=== PATIENT | male | born 1965 | race Caucasian/White ===

== ENCOUNTER 2016-11-14 08:10 | Inpatient (IN) | payer OTHER ==
[~2016-11-14] VITALS: Ht 182.9 cm; Wt 70.5 kg
[~2016-11-14 08:10] MED LIST: BACT800T5 PO; CEPH500C3 PO; LATU80TA PO; LITH1TAB3 PO; LITH300C2 PO; TRAM50 PO
[2016-11-14 08:14] VITALS: BP 130/62; PULSE 80; RESP 18; TEMP 98.8; O2SAT 99
[2016-11-14] MEDS ORDERED: LITH600C PO (08:17)
[2016-11-14] MEDS ORDERED: GEOD80CA PO (08:17)
[2016-11-14] MEDS ORDERED: ZANT150T2 PO (08:17)
[2016-11-14] MEDS ORDERED: DOCU100C PO (08:17)
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
[2016-11-14 08:54] LABS: AUTOMATED NEUTROPHIL # 4.7 TH/MM3 (1.8-7.7); BASOPHIL # 0.1 TH/MM3 (0-0.2); BASOPHIL % 0.8 % (0.0-2.0); EOSINOPHIL # 0.2 TH/MM3 (0-0.4); EOSINOPHIL % 2.3 % (0.0-4.0); HEMATOCRIT 45.5 % (39.0-51.0); HEMO FLAGS DIFF FINAL; LYMPH % 28.3 % (9.0-44.0); LYMPHOCYTE # 2.1 TH/MM3 (1.0-4.8); MEAN CELL VOLUME 77.2 FL (80.0-100.0); MEAN CORPUSCULAR HEMOGLOBIN 24.9 PG (27.0-34.0); MEAN CORPUSCULAR HGB CONC 32.3 % (32.0-36.0); MONO % 6.6 % (0.0-8.0); PLATELET COUNT 297 TH/MM3 (150-450); RED CELL DISTRIBUTION WIDTH 19.8 % (11.6-17.2); WHITE BLOOD COUNT 7.5 TH/MM3 (4.0-11.0)
[2016-11-14 09:05] LABS: ALT (GPT) 32 U/L (12-78); ANION GAP 7 MEQ/L (5-15); AST (GOT) 35 U/L (15-37); BICARBONATE 24.8 MEQ/L (21.0-32.0); BLOOD UREA NITROGEN 18 MG/DL (7-18); CHLORIDE 107 MEQ/L (98-107); GLOMERULAR FILTRATION RATE 119 ML/MIN (>89); POTASSIUM 3.7 MEQ/L (3.5-5.1); SODIUM (NA) 139 MEQ/L (136-145)
[2016-11-14 09:08] LABS: ALKALINE PHOSPHATASE 118 U/L (45-117); TOTAL BILIRUBIN ADULT 0.2 MG/DL (0.2-1.0)
[2016-11-14 10:00] VITALS: BP 132/84; PULSE 76; RESP 20; O2SAT 98
[2016-11-14 12:00] VITALS: BP 130/62; PULSE 80; RESP 14; O2SAT 99
[2016-11-14] MEDS ORDERED: LORazepam 1 MG TAB PO ONE (14:15)
[2016-11-14 15:49] VITALS: BP 114/80; PULSE 85; RESP 16; O2SAT 100
[2016-11-14] MEDS ORDERED: IBUPROFEN 800 MG TAB PO ONE (16:45)
[2016-11-14] MEDS: LITHIUM CARBONATE 300 MG CAP PO SCH (20:30)
[2016-11-14] MEDS: ZIPRASIDONE HCL 80 MG CAP PO SCH (20:30)
[2016-11-14 23:13] VITALS: BP 104/56; PULSE 76; RESP 18; TEMP 98.9; O2SAT 97
[2016-11-15 02:17] VITALS: BP 112/59; PULSE 72; RESP 18; TEMP 98; O2SAT 95
[2016-11-15 05:07] VITALS: BP 101/78; PULSE 91; RESP 18; TEMP 98.4; O2SAT 98
[2016-11-15] MEDS ORDERED: IBUPROFEN 800 MG TAB PO ONE (05:30)
[2016-11-15] MEDS: LITHIUM CARBONATE 300 MG CAP PO SCH ×4 (08:26→20:51)
[2016-11-15] MEDS: ZIPRASIDONE HCL 80 MG CAP PO SCH ×2 (08:52→20:51)
[2016-11-15] MEDS ORDERED: MAGNESIUM HYDROXIDE SUSP 30 ML CUP PO PRN (09:30)
[2016-11-15] MEDS ORDERED: diphenhydrAMINE HCL 50 MG CAP PO PRN (09:30)
[2016-11-15] MEDS ORDERED: ALUMINUM/MAGNESIUM/SIMETH 30 ML CUP PO PRN (09:30)
[2016-11-15] MEDS ORDERED: LORazepam 0.5 MG TAB PO PRN (09:30)
[2016-11-15] MEDS: clonazePAM 1 MG TAB PO SCH ×2 (09:45→20:51)
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
[2016-11-15 11:33] VITALS: BP 114/64; PULSE 80; RESP 18; TEMP 97.6; O2SAT 99
[2016-11-15 12:51] LABS: FREE T4 1.15 NG/DL (0.76-1.46)
[2016-11-15 17:26] VITALS: BP 112/80; PULSE 87; RESP 17; TEMP 98.3; O2SAT 98
[2016-11-15] MEDS: DOCUSATE SODIUM 100 MG CAP PO SCH (20:50)
[2016-11-15] MEDS: FAMOTIDINE 20 MG TAB PO SCH (20:51)
[2016-11-15] MEDS ORDERED: ZIPRASIDONE HCL 80 MG CAP PO SCH (21:00)
[2016-11-16 06:01] VITALS: BP 99/63; PULSE 99; RESP 18; TEMP 98; O2SAT 96
[2016-11-16] MEDS: LITHIUM CARBONATE 300 MG CAP PO SCH (08:53)
[2016-11-16] MEDS: ZIPRASIDONE HCL 80 MG CAP PO SCH (09:00)
[2016-11-16] MEDS: clonazePAM 1 MG TAB PO SCH (09:00)
[2016-11-16] MEDS: DOCUSATE SODIUM 100 MG CAP PO SCH ×3 (09:00→21:44)
[2016-11-16] MEDS: FAMOTIDINE 20 MG TAB PO SCH ×2 (09:00→21:44)
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
[2016-11-16 13:59] LABS: AUTOMATED NEUTROPHIL # 5.3 TH/MM3 (1.8-7.7); BASOPHIL % 0.5 % (0.0-2.0); EOSINOPHIL # 0.2 TH/MM3 (0-0.4); EOSINOPHIL % 3.2 % (0.0-4.0); HEMATOCRIT 37.1 % (39.0-51.0); HEMO FLAGS DIFF FINAL; LYMPH % 18.6 % (9.0-44.0); LYMPHOCYTE # 1.4 TH/MM3 (1.0-4.8); MEAN CELL VOLUME 77.3 FL (80.0-100.0); MEAN CORPUSCULAR HEMOGLOBIN 24.1 PG (27.0-34.0); MEAN CORPUSCULAR HGB CONC 31.2 % (32.0-36.0); MONO % 6.8 % (0.0-8.0); NEUT % 70.9 % (16.0-70.0); PLATELET COUNT 293 TH/MM3 (150-450); RED CELL DISTRIBUTION WIDTH 19.6 % (11.6-17.2); WHITE BLOOD COUNT 7.5 TH/MM3 (4.0-11.0)
[2016-11-16 14:24] LABS: ANION GAP 8 MEQ/L (5-15); AST (GOT) 19 U/L (15-37); BICARBONATE 24.3 MEQ/L (21.0-32.0); BLOOD UREA NITROGEN 16 MG/DL (7-18); CHLORIDE 111 MEQ/L (98-107); GLOMERULAR FILTRATION RATE 87 ML/MIN (>89); POTASSIUM 4.5 MEQ/L (3.5-5.1); SODIUM (NA) 143 MEQ/L (136-145)
[2016-11-16 14:52] LABS: ALKALINE PHOSPHATASE 104 U/L (45-117); ALT (GPT) 20 U/L (12-78); HDL CHOLESTEROL 45.3 MG/DL (40.0-60.0); LDL CHOLESTEROL 45 MG/DL (0-99); TOTAL BILIRUBIN ADULT LESS THAN 0.1 MG/DL (0.2-1.0)
[2016-11-16 15:56] LABS: HEMOGLOBIN A1a 1.4 %; HEMOGLOBIN A1b 0.8 %; HEMOGLOBIN Ao 84.2 %; HEMOGLOBIN F 1.4 %; HEMOGLOBIN LA1C 2.1 %; HEMOGLOBIN P3 3.8 %
[2016-11-17] MEDS: ACETAMINOPHEN 325 MG TAB PO PRN ×2 (05:06→20:59)
[2016-11-17 06:13] VITALS: BP 125/80; PULSE 81; RESP 16; TEMP 98.3; O2SAT 96
[2016-11-17] MEDS: FAMOTIDINE 20 MG TAB PO SCH ×2 (09:00→20:59)
[2016-11-17] MEDS: DOCUSATE SODIUM 100 MG CAP PO SCH ×2 (09:00→20:59)
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
[2016-11-17 15:26] LABS: TRANSFERRIN IRON PROFILE 249 MG/DL (200-360)
[2016-11-17 15:29] LABS: FERRITIN 12 NG/ML (26-388)
[2016-11-17 17:31] VITALS: BP 119/72; PULSE 84; RESP 18; TEMP 97.1; O2SAT 97
--- NOTE | 2016-11-17 21:50 | EKG ---
Date Performed: 11/16/2016 Time Performed: 14:29:24 PTAGE: 51 years EKG: Sinus rhythm NORMAL ECG PREVIOUS TRACING : 12/10/2014 23.20 Compared to the previous tracing rate slower DOCTOR: James Garsia Interpretating Date/Time 11/17/2016 21:50:00
[2016-11-18] MEDS: ACETAMINOPHEN 325 MG TAB PO PRN (01:52)
[2016-11-18 06:04] VITALS: BP 146/91; PULSE 84; RESP 17; TEMP 97.8; O2SAT 98
[2016-11-18] MEDS: CYANOCOBALAMIN 1,000 MCG TAB PO SCH ×2 (09:00→09:34)
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
[2016-11-18] MEDS: LITHIUM CARBONATE 300 MG CAP PO SCH ×2 (09:30→21:00)
[2016-11-18] MEDS: FAMOTIDINE 20 MG TAB PO SCH (09:34)
[2016-11-18] MEDS: DOCUSATE SODIUM 100 MG CAP PO SCH (09:34)
[2016-11-18] MEDS: FERROUS SULFATE 325 MG (65 MG ELEMENTAL IRON) TAB PO SCH ×2 (12:43→17:00)
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
[2016-11-18] MEDS ORDERED: IBUPROFEN 600 MG TAB PO PRN (16:45)
[2016-11-18] MEDS ORDERED: traMADol HCL 50 MG TAB PO PRN (16:45)
[2016-11-18] MEDS: PANTOPRAZOLE SOD 40 MG DELAYED RELEASE TAB PO SCH (17:00)
[2016-11-18 18:23] VITALS: BP 114/72; PULSE 87; RESP 18; TEMP 98.2; O2SAT 97
[2016-11-18] MEDS: DOCUSATE SODIUM 50 MG/SENNA 8.6 MG TAB PO SCH (21:00)
[2016-11-19] MEDS: PANTOPRAZOLE SOD 40 MG DELAYED RELEASE TAB PO SCH ×2 (08:03→08:28)
[2016-11-19] MEDS: CYANOCOBALAMIN 1,000 MCG TAB PO SCH (08:03)
[2016-11-19] MEDS: DOCUSATE SODIUM 50 MG/SENNA 8.6 MG TAB PO SCH ×4 (08:03→21:23)
[2016-11-19] MEDS: LITHIUM CARBONATE 300 MG CAP PO SCH ×3 (08:03→21:23)
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
[2016-11-19] MEDS: FERROUS SULFATE 325 MG (65 MG ELEMENTAL IRON) TAB PO SCH ×2 (12:00→17:00)
[2016-11-19 16:15] VITALS: BP 129/72; PULSE 129; RESP 18; TEMP 95.4; O2SAT 98
[2016-11-19] MEDS: ACETAMINOPHEN 325 MG TAB PO PRN ×2 (18:11→21:29)
[2016-11-20 05:39] VITALS: BP 114/73; PULSE 80; RESP 16; TEMP 98.1; O2SAT 97
[2016-11-20] MEDS: CYANOCOBALAMIN 1,000 MCG TAB PO SCH (08:50)
[2016-11-20] MEDS: LITHIUM CARBONATE 300 MG CAP PO SCH ×2 (08:50→20:45)
[2016-11-20] MEDS: DOCUSATE SODIUM 50 MG/SENNA 8.6 MG TAB PO SCH ×2 (08:51→20:45)
[2016-11-20] MEDS: PANTOPRAZOLE SOD 40 MG DELAYED RELEASE TAB PO SCH (08:51)
[2016-11-20] MEDS: FERROUS SULFATE 325 MG (65 MG ELEMENTAL IRON) TAB PO SCH ×2 (12:00→16:41)
[2016-11-20 17:53] VITALS: BP 125/86; PULSE 110; RESP 18; TEMP 98.3; O2SAT 97
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
[2016-11-21 05:32] VITALS: BP 118/78; PULSE 104; RESP 20; TEMP 97.3; O2SAT 96
[2016-11-21] MEDS: DOCUSATE SODIUM 50 MG/SENNA 8.6 MG TAB PO SCH ×2 (09:00→20:42)
[2016-11-21] MEDS: PANTOPRAZOLE SOD 40 MG DELAYED RELEASE TAB PO SCH (09:00)
[2016-11-21] MEDS: LITHIUM CARBONATE 300 MG CAP PO SCH ×2 (10:23→20:42)
[2016-11-21] MEDS: FERROUS SULFATE 325 MG (65 MG ELEMENTAL IRON) TAB PO SCH ×2 (13:28→17:03)
[2016-11-21] MEDS: CYANOCOBALAMIN 1,000 MCG TAB PO SCH (13:28)
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
[2016-11-21 17:08] VITALS: BP 118/75; PULSE 89; RESP 18; TEMP 98.9; O2SAT 98
--- NOTE | 2016-11-21 18:35 | HHI.PYPN ---
Subjective Remarks Patient was seen and case discussed with nursing. Patient remains loud irritable and threatening. This is a possible act to extend his stay. Per nursing he may have a secondary gain to stay here not become homeless. Patient cuts the interview short and is not cooperative. Compliant with medications Objective Alert: Yes [place]: Person, Place, Date, Situation Mood: Agitated, Angry Affect: Labile Memory Intact: Comment (Not formally assessed) Hallucinations: Other (would not answer) Delusions: No Delusion Type: Other (would not answer) Suicidal: Ideation (would not answer) Homicidal: Ideation (not answer) Insight/Judgment Poor Labs Date/Time Source Procedure Growth Status 11/18/16 19:14 Stool Stool Stool Occult Blood (ALYSA) - Final HEMOCCULT NEGATIVE Complete Vitals/IOs Vital Signs Date Time Temp Pulse Resp B/P (MAP) Pulse Ox O2 Delivery O2 Flow Rate FiO2 11/21/16 17:08 98.9 89 18 118/75 (89) 98 Assessment & Plan Problem List: (1) Adjustment disorder with mixed disturbance of emotions and conduct ICD Codes: F43.25 - Adjustment disorder with mixed disturbance of emotions and conduct (2) Antisocial personality traits (3) Cocaine abuse ICD Codes: F14.10 - Cocaine abuse, uncomplicated (4) History of schizoaffective disorder ICD Codes: Z86.59 - Personal history of other mental and behavioral disorders Assessment & Plan Continue current treatment plan Justification for Cont. Inpt. Patient will decompensate in a less restrictive setting Request HC Surrog/Guard Advoc?: No Luis Manuel Castellano DO Nov 21, 2016 18:35
[2016-11-21] MEDS: FAMOTIDINE 20 MG TAB PO SCH (20:42)
[2016-11-22 06:04] VITALS: BP 109/64; PULSE 77; RESP 18; TEMP 99; O2SAT 96
[2016-11-22] MEDS ORDERED: LITH300C2 PO (08:59)
[2016-11-22] MEDS ORDERED: FERR325T20 PO (08:59)
[2016-11-22] MEDS ORDERED: VITA10002 PO (08:59)
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
[2016-11-22] MEDS: DOCUSATE SODIUM 50 MG/SENNA 8.6 MG TAB PO SCH ×2 (09:00→09:12)
[2016-11-22] MEDS: CYANOCOBALAMIN 1,000 MCG TAB PO SCH (09:12)
[2016-11-22] MEDS: FAMOTIDINE 20 MG TAB PO SCH (09:12)
[2016-11-22] MEDS: LITHIUM CARBONATE 300 MG CAP PO SCH (09:12)
[2016-11-22] MEDS: FERROUS SULFATE 325 MG (65 MG ELEMENTAL IRON) TAB PO SCH (12:00)
== END 2016-11-22 13:00 | disposition home or self-care (01) | DRG 883 ==
LOC: NEPE 08:10 → NEDA 11-15 09:29 → H270 11-15 10:35
PROVIDERS: ADMIT Psychiatry & Neurology Psychiatry; ATTEND Psychiatry & Neurology Psychiatry
DX: F60.2 Antisocial personality disorder (principal); R45.850 Homicidal ideations; F14.10 Cocaine abuse, uncomplicated; F17.210 Nicotine dependence, cigarettes, uncomplicated; D50.9 Iron deficiency anemia, unspecified; F43.25 Adjustment disorder with mixed disturbance of emotions and conduct; Z59.0 Homelessness; Z86.59 Personal history of other mental and behavioral disorders
CPT/HCPCS: 80053; 80061; 80178; 80307; 82272; 82306; 82607; 82728; 83036; 83540; 83550; 84439; 84443; 85025; 93005; Q0163

== ENCOUNTER 2017-03-06 09:30 | Inpatient (IN) | payer OTHER ==
[2017-03-06 09:58] LABS: RBC COMMENT 1 1
[2017-03-06] MEDS ORDERED: SODIUM CHLORIDE 0.9% FLUSH 10 ML FLUSH IV FLUSH ×4 (10:00→21:00)
[2017-03-06 10:18] LABS: BLOOD GAS BASE EXCESS -4.4 mmol/L (-2-2); BLOOD GAS CARBOXYHEMOGLOBIN 1.3 % (0-4); BLOOD GAS HCO3 19 mmol/L (22-26); BLOOD GAS METHEMOGLOBIN 0.5 % (0-2); BLOOD GAS O2 HGB SATURATION 98 % (90-100); BLOOD GAS OXYGEN CONTENT 13.8 Vol % (12.0-20.0); BLOOD GAS PCO2 27 mmHg (38-42); BLOOD GAS PO2 158 mmHG (61-120); BLOOD GAS TOTAL HGB 9.8 G/DL (12.0-16.0); CRITICAL VALUE NO; TEMP CORR TO 98.6
[2017-03-06 10:19] LABS: DRAW SITE RT RADIAL; FIO2 40 %; LITER FLOW 5 L/M; NUMBER OF ARTERIAL PUNCTURES 1; OXYGEN DEVICE NASAL CANNULA; STAT YES; ULNAR PULSE PRESENT
[2017-03-06] MEDS: SODIUM CHLOR 0.9% 1000 ML INJ 1,000 ML IV ×4 (10:23→20:00)
[2017-03-06] MEDS: PIPERACIL-TAZO 4.5 GM PREMIX 100 ML IV ×3 (10:24→22:25)
[2017-03-06] MEDS: SODIUM CHLOR 0.9% 250 ML INJ 250 ML IV ×2 (10:24→12:45)
[2017-03-06 10:42] LABS: BACTERIA, URINE RARE /hpf; BILIRUBIN, URINE NEG (NEG); BLOOD, URINE SMALL (NEG); GLUCOSE,URINE NEG (NEG); KETONE, URINE NEG (NEG); MUCUS URINE FEW /lpf (OCC); NITRITE,URINE NEG (NEG); URINE COLOR YELLOW (YELLW/STRAW); URINE LEUKOCYTE ESTERASE NEG (NEG)
[2017-03-06 10:44] LABS: COMMENT (UR) CATH-CULTURE IND; CULTURE IF INDICATED CATH CULTURE IND
[2017-03-06 10:48] LABS: AMMONIA 30 MCMOL/L (11-32)
[2017-03-06 10:49] LABS: AMPHETAMINE, URINE NEG (NEG); BARBITURATES, URINE NEG (NEG); BENZODIAZEPINE,URINE NEG (NEG); CANNABINOIDS, URINE NEG (NEG); COCAINE, URINE NEG (NEG)
[2017-03-06 10:52] LABS: SALICYLATES LESS THAN 1.7 MG/DL (2.8-20.0)
[2017-03-06] MEDS: VANCOMYCIN INJ 1,000 MG in SODIUM CHLOR 0.9% 250 ML INJ 250 ML IV (10:58)
[2017-03-06 11:09] LABS: CREATINE KINASE 961 U/L (39-308); TOTAL BILIRUBIN ADULT 0.1 MG/DL (0.2-1.0); TROPONIN I LESS THAN 0.02 NG/ML (0.02-0.05)
[2017-03-06 11:22] LABS: CKMB 29.3 NG/ML (0.5-3.6)
[2017-03-06 11:39] LABS: AUTOMATED NEUTROPHIL # 18.7 TH/MM3 (1.8-7.7); BASOPHIL % 0.1 % (0.0-2.0); HEMATOCRIT 27.7 % (39.0-51.0); HEMO FLAGS DIFF FINAL; HEMOGLOBIN 8.9 GM/DL (13.0-17.0); LYMPH % 2.9 % (9.0-44.0); LYMPHOCYTE # 0.6 TH/MM3 (1.0-4.8); MEAN CELL VOLUME 82.5 FL (80.0-100.0); MEAN CORPUSCULAR HEMOGLOBIN 26.6 PG (27.0-34.0); MEAN CORPUSCULAR HGB CONC 32.3 % (32.0-36.0); MEAN PLATELET VOLUME 7.4 FL (7.0-11.0); MONO % 6.8 % (0.0-8.0); MONOCYTE # 1.4 TH/MM3 (0-0.9); NEUT % 90.2 % (16.0-70.0); PLATELET COUNT 444 TH/MM3 (150-450); RED BLOOD COUNT 3.36 MIL/MM3 (4.50-5.90); RED CELL DISTRIBUTION WIDTH 15.5 % (11.6-17.2); WHITE BLOOD COUNT 20.8 TH/MM3 (4.0-11.0)
[2017-03-06 11:48] LABS: INTERNATIONAL NORMALIZED RATIO 2.2 RATIO; PROTHROMBIN TIME - PATIENT 22.6 SEC (9.8-11.6)
[2017-03-06 11:52] LABS: APTT (PATIENT) 30.9 SEC (24.3-30.1)
[2017-03-06] MEDS: NORMOSOL R IV (12:00)
[2017-03-06] MEDS: STERILE WATER FOR INJECTION 20 ML VIAL IV (12:00)
[2017-03-06] MEDS: PHENYLEPH/NS 1000 MCG/10 ML SYR IV (12:00)
[2017-03-06] MEDS: PHENYLEPHRINE HCL 10 MG/ML VIAL IV (12:00)
[2017-03-06] MEDS: VECURONIUM BROMIDE 20 MG VIAL IV (12:00)
[2017-03-06] MEDS: ePHEDrine/NS 25 MG/5 ML SYRINGE IV (12:00)
[2017-03-06] MEDS: ceFAZolin INJ 1,000 MG VIAL IV (12:00)
[2017-03-06] MEDS: ROCURONIUM INJ 50 MG/5 ML SYRINGE IV PUSH (12:00)
[2017-03-06] MEDS: LEVOTHYROXINE SODIUM 100 MCG VIAL IV PUSH (12:37)
[2017-03-06 12:44] LABS: ACETAMINOPHEN 15.3 MCG/ML (10.0-30.0); ALBUMIN 0.8 GM/DL (3.4-5.0); ALT (GPT) 22 U/L (12-78); ANION GAP 10 MEQ/L (5-15); AST (GOT) 36 U/L (15-37); BICARBONATE 16.3 MEQ/L (21.0-32.0); BLOOD UREA NITROGEN 25 MG/DL (7-18); CHLORIDE 121 MEQ/L (98-107); CREATININE 0.68 MG/DL (0.60-1.30); GLOMERULAR FILTRATION RATE 123 ML/MIN (>89); GLUCOSE,RANDOM 79 MG/DL (74-106); SODIUM (NA) 147 MEQ/L (136-145)
[2017-03-06] MEDS ORDERED: ONDANSETRON HCL 4 MG/2 ML VIAL IV PUSH (12:45)
[2017-03-06] MEDS: MISCELLANEOUS NURSING INFORMATION XX (12:45)
[2017-03-06] MEDS ORDERED: CHLORHEXIDINE GLUCONATE 2 % 1 PACK (2 CLOTHS) TOP (12:45)
[2017-03-06 12:46] LABS: LACTIC ACID SEPSIS PROTOCOL 2.8 mmol/L (0.4-2.0)
[2017-03-06 12:52] LABS: CALCIUM LESS THAN 5.0 MG/DL (8.5-10.1)
[2017-03-06 12:57] LABS: TOTAL PROTEIN 2.7 GM/DL (6.4-8.2)
[2017-03-06 12:59] LABS: ALKALINE PHOSPHATASE 44 U/L (45-117)
[2017-03-06] MEDS: ETOMIDATE 20 MG/10 ML VIAL IV PUSH (13:00)
[2017-03-06] MEDS: ROCURONIUM INJ 100 MG/10 ML VIAL IV (13:00)
[2017-03-06] MEDS ORDERED: TERBUTALINE INJ 1 MG/ML AMP SQ (13:00)
[2017-03-06] MEDS ORDERED: SODIUM CHLOR 0.9% 1000 ML INJ 1,000 ML IV (13:00)
[2017-03-06 13:01] LABS: ALCOHOL LESS THAN 3 MG/DL (0-5)
[2017-03-06 13:08] LABS: POTASSIUM 2.7 MEQ/L (3.5-5.1)
[2017-03-06] MEDS: ROCURONIUM INJ 50 MG/5 ML VIAL ×2 (13:11→14:13)
[2017-03-06 13:30] LABS: LACTIC ACID GHOST NOT REPORTABLE
[2017-03-06] MEDS: MIDAZOLAM HCL 5 MG/5 ML VIAL IV PUSH (14:00)
[2017-03-06] MEDS ORDERED: SODIUM BICARBONATE 8.4% INJ 150 MEQ in WATER STERILE FOR INJ 850 ML IV (14:00)
[2017-03-06] MEDS: POTASSIUM CHLOR 40 MEQ PREMIX 100 ML IV (14:00)
[2017-03-06] MEDS: CALCIUM CHLORIDE 10% SOLN 1 GRAM/10 ML SYR IV PUSH (14:00)
[2017-03-06] MEDS: MIDAZOLAM HCL 5 MG/ML VIAL (1 ML) ×2 (14:13)
[2017-03-06 14:33] LABS: FFP COMMENT 1 1
[2017-03-06] MEDS: BUPIVACAINE/EPINEPHRINE 0.25% PF 30 ML VIAL (15:15)
[2017-03-06 16:12] LABS: APTT (PATIENT) 26.3 SEC (24.3-30.1); INTERNATIONAL NORMALIZED RATIO 1.3 RATIO; PROTHROMBIN TIME - PATIENT 12.8 SEC (9.8-11.6)
[2017-03-06 16:19] LABS: BLOOD GAS BASE EXCESS -3.8 mmol/L (-2-2); BLOOD GAS HCO3 21 mmol/L (22-26); BLOOD GAS METHEMOGLOBIN 1.3 % (0-2); BLOOD GAS O2 HGB SATURATION 97 % (90-100); BLOOD GAS OXYGEN CONTENT 14.2 Vol % (12.0-20.0); BLOOD GAS PCO2 44 mmHg (38-42); BLOOD GAS PO2 465 mmHg (61-120); BLOOD GAS TOTAL HGB 9.5 G/DL (12.0-16.0); CRITICAL VALUE NO; FIO2 100 %; OXYGEN DEVICE O.R. ABG; STAT YES; TEMP CORR TO 98.6
[2017-03-06 18:23] LABS: BLOOD GAS BASE EXCESS -1.8 mmol/L (-2-2); BLOOD GAS CARBOXYHEMOGLOBIN 1.5 % (0-4); BLOOD GAS HCO3 23 mmol/L (22-26); BLOOD GAS METHEMOGLOBIN 1.4 % (0-2); BLOOD GAS O2 HGB SATURATION 97 % (90-100); BLOOD GAS OXYGEN CONTENT 10.2 Vol % (12.0-20.0); BLOOD GAS PCO2 38 mmHg (38-42); BLOOD GAS PO2 257 mmHg (61-120); CRITICAL VALUE NO; TEMP CORR TO 98.6
[2017-03-06 18:24] LABS: FIO2 60 %; OXYGEN DEVICE O.R. ABG; STAT YES
[2017-03-06] MEDS ORDERED: CALCIUM CHLORIDE 10% SOLN 1 GRAM/10 ML SYR (18:29)
[2017-03-06 18:40] LABS: RBC COMMENT 1 1
[2017-03-06] MEDS: CHLORHEXIDINE 0.12% (ORAL KIT) 15 ML CUP MT (20:00)
[2017-03-06] MEDS ORDERED: METOCLOPRAMIDE HCL 10 MG/2 ML VIAL IVS (20:00)
[2017-03-06] MEDS: PHENYLEPHRINE HCL 10 MG/ML VIAL (20:05)
[2017-03-06] MEDS: MIDAZOLAM HCL 2 MG/2 ML VIAL (20:11)
[2017-03-06] MEDS: fentaNYL DRIP 250 ML IV (20:42)
[2017-03-06] MEDS: MIDAZOLAM 100 MG/NS 100 ML DRIP Premix IV (20:55)
[2017-03-06] MEDS: SODIUM CHLORIDE 0.9% FLUSH 10 ML FLUSH IV FLUSH (21:00)
[2017-03-06 21:36] LABS: HEMATOCRIT 35.9 % (39.0-51.0); HEMOGLOBIN 12.1 GM/DL (13.0-17.0); MEAN CELL VOLUME 82.2 FL (80.0-100.0); MEAN CORPUSCULAR HEMOGLOBIN 27.8 PG (27.0-34.0); MEAN CORPUSCULAR HGB CONC 33.8 % (32.0-36.0); MEAN PLATELET VOLUME 7.7 FL (7.0-11.0); PLATELET COUNT 369 TH/MM3 (150-450); RED BLOOD COUNT 4.37 MIL/MM3 (4.50-5.90); RED CELL DISTRIBUTION WIDTH 17.3 % (11.6-17.2); REVIEW FLAG FINAL
[2017-03-06] MEDS ORDERED: ICU - D/C ICU ELECTROLYTE ORDERS (21:45)
[2017-03-06] MEDS ORDERED: ICU - MAGNESIUM SULFATE 4 GM/NS 100 ML IV (21:45)
[2017-03-06] MEDS ORDERED: ICU - SODIUM PHOSPHATE 30 MMOL/NS 250 ML IV (21:45)
[2017-03-06] MEDS ORDERED: ICU - MAGNESIUM SULFATE 2 GM/NS 100 ML IV (21:45)
[2017-03-06] MEDS ORDERED: ICU - CALL ORDERING PHYSICIAN (21:45)
[2017-03-06] MEDS ORDERED: ICU - POTASSIUM PHOSPHATE MONOBASIC 500 MG TAB PO (21:45)
[2017-03-06] MEDS ORDERED: ICU - MAGNESIUM OXIDE 400 MG TAB PO (21:45)
[2017-03-06] MEDS ORDERED: ICU - POTASSIUM CHLORIDE/AQUEOUS SOLN 20 MEQ/100 ML IVPB IV (21:45)
[2017-03-06] MEDS ORDERED: POTASSIUM CHLORIDE 25 MEQ EFFERVESCENT TAB PO (21:45)
[2017-03-06 21:53] LABS: MRSA PCR SURVEILLANCE MRSA NOT DETECTED (NOT DETECT)
[2017-03-06 21:56] LABS: ANION GAP 12 MEQ/L (5-15); BICARBONATE 23.2 MEQ/L (21.0-32.0); BLOOD UREA NITROGEN 37 MG/DL (7-18); CALCIUM 7.2 MG/DL (8.5-10.1); CHLORIDE 109 MEQ/L (98-107); CREATININE 1.17 MG/DL (0.60-1.30); GLOMERULAR FILTRATION RATE 66 ML/MIN (>89); GLUCOSE,RANDOM 93 MG/DL (74-106); POTASSIUM 4.7 MEQ/L (3.5-5.1); SODIUM (NA) 144 MEQ/L (136-145)
[2017-03-06 22:12] LABS: CALCIUM-PROTEIN CORRECTED 8.9 MG/DL (8.5-10.1); TOTAL PROTEIN 4.2 GM/DL (6.4-8.2)
[2017-03-06 22:14] LABS: LACTIC ACID SEPSIS REPEAT 1.2 mmol/L (0.4-2.0)
[2017-03-06] MEDS: FAMOTIDINE 20 MG/2 ML VIAL IV PUSH (22:25)
[2017-03-06] MEDS: FLUCONAZOLE 200 MG PREMIX BAG 100 ML IV (22:25)
[2017-03-06 22:28] LABS: LITHIUM 0.9 MEQ/L (0.5-1.5)
[2017-03-07] MEDS: SODIUM CHLOR 0.9% 1000 ML INJ 1,000 ML IV ×8 (01:47→17:17)
[2017-03-07] MEDS: ALBUMIN 5% INJ 250 ML IV (01:56)
[2017-03-07 03:06] LABS: BASOPHIL # 0.1 TH/MM3 (0-0.2); HEMATOCRIT 26.5 % (39.0-51.0); HEMOGLOBIN 8.7 GM/DL (13.0-17.0); LYMPH % 2.3 % (9.0-44.0); LYMPHOCYTE # 0.3 TH/MM3 (1.0-4.8); MEAN CELL VOLUME 82.7 FL (80.0-100.0); MEAN CORPUSCULAR HEMOGLOBIN 27.1 PG (27.0-34.0); MEAN CORPUSCULAR HGB CONC 32.7 % (32.0-36.0); MEAN PLATELET VOLUME 7.3 FL (7.0-11.0); MONO % 1.6 % (0.0-8.0); MONOCYTE # 0.2 TH/MM3 (0-0.9); NEUT % 95.1 % (16.0-70.0); PLATELET COUNT 215 TH/MM3 (150-450); RED CELL DISTRIBUTION WIDTH 16.8 % (11.6-17.2); WHITE BLOOD COUNT 11.6 TH/MM3 (4.0-11.0)
[2017-03-07 03:07] LABS: HEMO FLAGS AUTO DIFF
[2017-03-07 03:24] LABS: LACTIC ACID 0.6 mmol/L (0.4-2.0)
[2017-03-07 03:27] LABS: ALBUMIN 1.3 GM/DL (3.4-5.0); ALKALINE PHOSPHATASE 27 U/L (45-117); ALT (GPT) 31 U/L (12-78); ANION GAP 7 MEQ/L (5-15); AST (GOT) 60 U/L (15-37); BICARBONATE 21.6 MEQ/L (21.0-32.0); BLOOD UREA NITROGEN 34 MG/DL (7-18); CALCIUM 6.4 MG/DL (8.5-10.1); CALCIUM-PROTEIN CORRECTED 8.5 MG/DL (8.5-10.1); CHLORIDE 118 MEQ/L (98-107); CREATININE 0.98 MG/DL (0.60-1.30); GLOMERULAR FILTRATION RATE 81 ML/MIN (>89); GLUCOSE,RANDOM 69 MG/DL (74-106); MAGNESIUM 1.8 MG/DL (1.5-2.5); POTASSIUM 3.9 MEQ/L (3.5-5.1); SODIUM (NA) 147 MEQ/L (136-145); TOTAL BILIRUBIN ADULT 0.5 MG/DL (0.2-1.0); TOTAL PROTEIN 3.3 GM/DL (6.4-8.2)
[2017-03-07] MEDS: PIPERACIL-TAZO 4.5 GM PREMIX 100 ML IV ×4 (04:00→22:00)
[2017-03-07] MEDS: CHLORHEXIDINE GLUCONATE 2 % 1 PACK (2 CLOTHS) TOP (04:00)
[2017-03-07 04:12] LABS: BANDS 19 % (0-6); LYMPHOCYTES 1 % (9-44); METAMYELOCYTES 1 % (0-1); MONOCYTES 1 % (0-8); NEUTROPHIL # MANUAL DIFF 11.4 TH/MM3 (1.8-7.7); POLYS (SEG NEUTROPHILS) 78 % (16-70); WBC DIFF SAMPLE 100
[2017-03-07 04:13] LABS: PLATELET ESTIMATE SMEAR NORMAL (NORMAL); PLATELET MORPHOLOGY NORMAL (NORMAL); SCAN/DIFF FINAL DIFF MANUAL
[2017-03-07] MEDS ORDERED: VASOPRESSIN 40 U/D5W 100 ML Titrate, Post Cardiac Surgery IV (04:30)
[2017-03-07] MEDS: NOREPINEPHRINE INJ 4 MG in SODIUM CHLOR 0.9% 250 ML INJ 246 ML IV ×2 (04:35→16:55)
[2017-03-07] MEDS: VASOPRESSIN 40 U/D5W 100 ML Titrate, Post Cardiac Surgery IV ×2 (04:38→16:54)
[2017-03-07 06:21] LABS: RBC COMMENT 1 1
[2017-03-07] MEDS: CHLORHEXIDINE 0.12% (ORAL KIT) 15 ML CUP MT ×2 (08:00→20:00)
[2017-03-07] MEDS: SODIUM CHLORIDE 0.9% FLUSH 10 ML FLUSH IV FLUSH ×2 (09:00→20:42)
[2017-03-07] MEDS: FAMOTIDINE 20 MG/2 ML VIAL IV PUSH ×2 (09:37→20:42)
[2017-03-07] MEDS: fentaNYL DRIP 250 ML IV ×2 (09:38→21:21)
[2017-03-07] MEDS ORDERED: Vancomycin Consult Pharmacy 1 EA OTHER (11:00)
[2017-03-07] MEDS ORDERED: VANCOMYCIN INJ 1,000 MG in SODIUM CHLOR 0.9% 250 ML INJ 250 ML IV (12:00)
[2017-03-07] MEDS: VANCOMYCIN INJ 1,250 MG in SODIUM CHLOR 0.9% 250 ML INJ 250 ML IV (14:38)
[2017-03-07] MEDS: HEPARIN SODIUM - SQ 10,000 UNITS/ML VIAL SQ (18:15)
[2017-03-07] MEDS: FLUCONAZOLE 200 MG PREMIX BAG 100 ML IV (20:42)
[2017-03-07] MEDS ORDERED: POVIDONE IODINE 5% (ANTISEPSIS KIT) 4 APPLICATIONS EACH NARE (22:00)
[2017-03-07] MEDS ORDERED: SODIUM CHLORID 0.9% 500 ML IV (22:00)
[2017-03-07] MEDS ORDERED: CHLORHEXIDINE GLUCONATE 2 % 1 PACK (2 CLOTHS) TOPICAL (22:00)
[2017-03-07] MEDS ORDERED: LACTATED RINGER'S 1000 ML IV (22:00)
[2017-03-08] MEDS: VANCOMYCIN INJ 1,250 MG in SODIUM CHLOR 0.9% 250 ML INJ 250 ML IV ×2 (00:40→11:37)
[2017-03-08] MEDS: SODIUM CHLOR 0.9% 1000 ML INJ 1,000 ML IV ×2 (01:09→17:15)
[2017-03-08] MEDS: HEPARIN SODIUM - SQ 10,000 UNITS/ML VIAL SQ ×3 (03:00→18:53)
[2017-03-08] MEDS: CHLORHEXIDINE GLUCONATE 2 % 1 PACK (2 CLOTHS) TOP (04:00)
[2017-03-08] MEDS: PIPERACIL-TAZO 4.5 GM PREMIX 100 ML IV ×4 (04:35→22:09)
[2017-03-08 05:33] LABS: AUTOMATED NEUTROPHIL # 18.8 TH/MM3 (1.8-7.7); BASOPHIL % 0.1 % (0.0-2.0); EOSINOPHIL % 0.1 % (0.0-4.0); HEMATOCRIT 30.1 % (39.0-51.0); HEMO FLAGS DIFF FINAL; HEMOGLOBIN 10.1 GM/DL (13.0-17.0); LYMPH % 2.6 % (9.0-44.0); LYMPHOCYTE # 0.5 TH/MM3 (1.0-4.8); MEAN CELL VOLUME 84.8 FL (80.0-100.0); MEAN CORPUSCULAR HEMOGLOBIN 28.5 PG (27.0-34.0); MEAN CORPUSCULAR HGB CONC 33.6 % (32.0-36.0); MEAN PLATELET VOLUME 7.7 FL (7.0-11.0); MONOCYTE # 0.6 TH/MM3 (0-0.9); NEUT % 94.2 % (16.0-70.0); PLATELET COUNT 246 TH/MM3 (150-450); RED BLOOD COUNT 3.55 MIL/MM3 (4.50-5.90); RED CELL DISTRIBUTION WIDTH 17.1 % (11.6-17.2)
[2017-03-08 06:03] LABS: ALKALINE PHOSPHATASE 43 U/L (45-117); ALT (GPT) 42 U/L (12-78); ANION GAP 10 MEQ/L (5-15); AST (GOT) 86 U/L (15-37); BICARBONATE 18.5 MEQ/L (21.0-32.0); BLOOD UREA NITROGEN 35 MG/DL (7-18); CALCIUM 7.3 MG/DL (8.5-10.1); CALCIUM-PROTEIN CORRECTED 9.2 MG/DL (8.5-10.1); CHLORIDE 122 MEQ/L (98-107); CREATININE 0.87 MG/DL (0.60-1.30); GLOMERULAR FILTRATION RATE 93 ML/MIN (>89); GLUCOSE,RANDOM 56 MG/DL (74-106); POTASSIUM 3.2 MEQ/L (3.5-5.1); SODIUM (NA) 150 MEQ/L (136-145); TOTAL BILIRUBIN ADULT 0.3 MG/DL (0.2-1.0); TOTAL PROTEIN 3.9 GM/DL (6.4-8.2)
[2017-03-08] MEDS: ICU - POTASSIUM CHLORIDE/AQUEOUS SOLN 40 MEQ/100 ML IVPB IV ×3 (06:51→22:09)
[2017-03-08] MEDS: CHLORHEXIDINE 0.12% (ORAL KIT) 15 ML CUP MT ×2 (08:00→20:41)
[2017-03-08] MEDS: SODIUM CHLORIDE 0.9% FLUSH 10 ML FLUSH IV FLUSH ×2 (09:00→20:41)
[2017-03-08] MEDS: FAMOTIDINE 20 MG/2 ML VIAL IV PUSH ×2 (09:00→20:41)
[2017-03-08] MEDS: fentaNYL DRIP 250 ML IV ×2 (10:17→20:40)
[2017-03-08] MEDS: VASOPRESSIN 40 U/D5W 100 ML Titrate, Post Cardiac Surgery IV ×2 (10:45→20:40)
[2017-03-08] MEDS ORDERED: DEXTROSE 50% IN WATER 50 ML SYRINGE (12:09)
[2017-03-08] MEDS: DEXT 5%-NACL 0.9% 1000 ML INJ 1,000 ML IV (12:10)
[2017-03-08] MEDS: DEXTROSE 50% IN WATER 50 ML SYRINGE IV (12:10)
[2017-03-08] MEDS: ALBUMIN 25% INJ 100 ML IV ×2 (12:15→20:41)
[2017-03-08] MEDS: MICAFUNGIN INJ 100 MG in SODIUM CHLORIDE 0.9% INJ 100 ML IV (16:00)
[2017-03-08 18:50] LABS: HEMATOCRIT 27.8 % (39.0-51.0); HEMOGLOBIN 9.3 GM/DL (13.0-17.0); MEAN CELL VOLUME 84.8 FL (80.0-100.0); MEAN CORPUSCULAR HEMOGLOBIN 28.2 PG (27.0-34.0); MEAN CORPUSCULAR HGB CONC 33.3 % (32.0-36.0); MEAN PLATELET VOLUME 7.9 FL (7.0-11.0); PLATELET COUNT 223 TH/MM3 (150-450); RED BLOOD COUNT 3.28 MIL/MM3 (4.50-5.90); RED CELL DISTRIBUTION WIDTH 17.1 % (11.6-17.2); REVIEW FLAG FINAL; WHITE BLOOD COUNT 16.3 TH/MM3 (4.0-11.0)
[2017-03-08] MEDS: NOREPINEPHRINE INJ 4 MG in SODIUM CHLOR 0.9% 250 ML INJ 246 ML IV (20:00)
[2017-03-08] MEDS: FLUCONAZOLE 400 MG IV (20:39)
[2017-03-08] MEDS: MIDAZOLAM 100 MG/NS 100 ML DRIP Premix IV (20:40)
[2017-03-08 21:50] LABS: POTASSIUM 3.3 MEQ/L (3.5-5.1)
[2017-03-09] MEDS: PHARMACY ORDERED LAB (00:31)
[2017-03-09 00:49] LABS: VANCOMYCIN TROUGH 18.1 MCG/ML (5.0-10.0)
[2017-03-09] MEDS: VANCOMYCIN INJ 1,250 MG in SODIUM CHLOR 0.9% 250 ML INJ 250 ML IV ×2 (01:07→13:01)
[2017-03-09 01:26] LABS: AUTOMATED NEUTROPHIL # 14.7 TH/MM3 (1.8-7.7); BASOPHIL % 0.1 % (0.0-2.0); EOSINOPHIL # 0.2 TH/MM3 (0-0.4); EOSINOPHIL % 1.3 % (0.0-4.0); HEMATOCRIT 26.2 % (39.0-51.0); HEMO FLAGS DIFF FINAL; LYMPHOCYTE # 0.3 TH/MM3 (1.0-4.8); MEAN CELL VOLUME 84.1 FL (80.0-100.0); MEAN CORPUSCULAR HEMOGLOBIN 28.8 PG (27.0-34.0); MEAN CORPUSCULAR HGB CONC 34.3 % (32.0-36.0); MEAN PLATELET VOLUME 7.5 FL (7.0-11.0); MONO % 2.5 % (0.0-8.0); MONOCYTE # 0.4 TH/MM3 (0-0.9); NEUT % 94.1 % (16.0-70.0); PLATELET COUNT 216 TH/MM3 (150-450); RED BLOOD COUNT 3.12 MIL/MM3 (4.50-5.90); RED CELL DISTRIBUTION WIDTH 17.1 % (11.6-17.2); WHITE BLOOD COUNT 15.6 TH/MM3 (4.0-11.0)
[2017-03-09 01:44] LABS: LACTIC ACID 0.7 mmol/L (0.4-2.0)
[2017-03-09 01:45] LABS: ALBUMIN 1.7 GM/DL (3.4-5.0); ALKALINE PHOSPHATASE 41 U/L (45-117); ALT (GPT) 40 U/L (12-78); ANION GAP 7 MEQ/L (5-15); AST (GOT) 70 U/L (15-37); BICARBONATE 19.3 MEQ/L (21.0-32.0); BLOOD UREA NITROGEN 30 MG/DL (7-18); CALCIUM 7.5 MG/DL (8.5-10.1); CHLORIDE 125 MEQ/L (98-107); CREATINE KINASE 878 U/L (39-308); CREATININE 0.72 MG/DL (0.60-1.30); GLOMERULAR FILTRATION RATE 116 ML/MIN (>89); GLUCOSE,RANDOM 134 MG/DL (74-106); POTASSIUM 3.4 MEQ/L (3.5-5.1); SODIUM (NA) 151 MEQ/L (136-145); TOTAL BILIRUBIN ADULT 0.3 MG/DL (0.2-1.0); TOTAL PROTEIN 4.2 GM/DL (6.4-8.2)
[2017-03-09 02:09] LABS: CKMB % 5.1 % (0.0-4.0)
[2017-03-09 02:42] LABS: TROPONIN I LESS THAN 0.02 NG/ML (0.02-0.05)
[2017-03-09] MEDS: HEPARIN SODIUM - SQ 10,000 UNITS/ML VIAL SQ ×3 (03:07→18:28)
[2017-03-09] MEDS: ALBUMIN 25% INJ 100 ML IV ×3 (03:07→20:24)
[2017-03-09] MEDS: PIPERACIL-TAZO 4.5 GM PREMIX 100 ML IV ×4 (03:50→22:00)
[2017-03-09] MEDS: CHLORHEXIDINE GLUCONATE 2 % 1 PACK (2 CLOTHS) TOP (04:00)
[2017-03-09 07:31] LABS: POTASSIUM 3.4 MEQ/L (3.5-5.1)
[2017-03-09] MEDS: CHLORHEXIDINE 0.12% (ORAL KIT) 15 ML CUP MT ×2 (08:00→20:24)
[2017-03-09] MEDS: ICU - POTASSIUM CHLORIDE/AQUEOUS SOLN 40 MEQ/100 ML IVPB IV (08:22)
[2017-03-09] MEDS: SODIUM CHLORIDE 0.9% FLUSH 10 ML FLUSH IV FLUSH ×2 (08:22→20:24)
[2017-03-09] MEDS: FAMOTIDINE 20 MG/2 ML VIAL IV PUSH (08:22)
[2017-03-09] MEDS: DEXT 5%-NACL 0.9% 1000 ML INJ 1,000 ML IV (08:22)
[2017-03-09] MEDS: DEXTROSE 5% IN WATE 1000ML INJ 1,000 ML IV (09:59)
[2017-03-09] MEDS: FUROSEMIDE 40 MG/4 ML VIAL IV PUSH (10:08)
[2017-03-09] MEDS: POTASSIUM CHLOR 40 MEQ PREMIX 100 ML IV (12:55)
[2017-03-09] MEDS: MICAFUNGIN INJ 100 MG in SODIUM CHLORIDE 0.9% INJ 100 ML IV (12:59)
[2017-03-09] MEDS: PANTOPRAZOLE SODIUM 40 MG VIAL IV PUSH (12:59)
[2017-03-09 17:44] LABS: POTASSIUM 4.3 MEQ/L (3.5-5.1)
[2017-03-09] MEDS: fentaNYL DRIP 250 ML IV (18:28)
[2017-03-09] MEDS: FLUCONAZOLE 400 MG IV (20:23)
[2017-03-10] MEDS: VANCOMYCIN INJ 1,250 MG in SODIUM CHLOR 0.9% 250 ML INJ 250 ML IV ×3 (01:13→22:44)
[2017-03-10] MEDS: PANTOPRAZOLE SODIUM 40 MG VIAL IV PUSH ×3 (01:13→22:43)
[2017-03-10] MEDS: HEPARIN SODIUM - SQ 10,000 UNITS/ML VIAL SQ ×3 (03:32→17:52)
[2017-03-10] MEDS: ALBUMIN 25% INJ 100 ML IV ×3 (03:32→20:07)
[2017-03-10] MEDS: PIPERACIL-TAZO 4.5 GM PREMIX 100 ML IV ×4 (03:33→20:07)
[2017-03-10] MEDS: CHLORHEXIDINE GLUCONATE 2 % 1 PACK (2 CLOTHS) TOP (04:00)
[2017-03-10 05:47] LABS: AUTOMATED NEUTROPHIL # 11.8 TH/MM3 (1.8-7.7); BASOPHIL # 0.1 TH/MM3 (0-0.2); BASOPHIL % 0.4 % (0.0-2.0); EOSINOPHIL # 0.1 TH/MM3 (0-0.4); EOSINOPHIL % 1.1 % (0.0-4.0); HEMATOCRIT 27.1 % (39.0-51.0); HEMO FLAGS DIFF FINAL; HEMOGLOBIN 8.9 GM/DL (13.0-17.0); LYMPH % 3.5 % (9.0-44.0); LYMPHOCYTE # 0.4 TH/MM3 (1.0-4.8); MEAN CORPUSCULAR HEMOGLOBIN 27.4 PG (27.0-34.0); MEAN CORPUSCULAR HGB CONC 32.7 % (32.0-36.0); MEAN PLATELET VOLUME 7.4 FL (7.0-11.0); MONO % 2.4 % (0.0-8.0); MONOCYTE # 0.3 TH/MM3 (0-0.9); NEUT % 92.6 % (16.0-70.0); PLATELET COUNT 200 TH/MM3 (150-450); RED BLOOD COUNT 3.23 MIL/MM3 (4.50-5.90); WHITE BLOOD COUNT 12.7 TH/MM3 (4.0-11.0)
[2017-03-10] MEDS: DEXTROSE 5% IN WATE 1000ML INJ 1,000 ML IV ×2 (05:49→22:43)
[2017-03-10 06:12] LABS: ALBUMIN 2.3 GM/DL (3.4-5.0); ALKALINE PHOSPHATASE 40 U/L (45-117); ALT (GPT) 43 U/L (12-78); ANION GAP 9 MEQ/L (5-15); AST (GOT) 76 U/L (15-37); BICARBONATE 22.5 MEQ/L (21.0-32.0); BLOOD UREA NITROGEN 15 MG/DL (7-18); CALCIUM 7.7 MG/DL (8.5-10.1); CHLORIDE 122 MEQ/L (98-107); GLOMERULAR FILTRATION RATE 143 ML/MIN (>89); GLUCOSE,RANDOM 93 MG/DL (74-106); PHOSPHORUS 1.5 MG/DL (2.5-4.9); POTASSIUM 3.4 MEQ/L (3.5-5.1); SODIUM (NA) 153 MEQ/L (136-145); TOTAL BILIRUBIN ADULT 0.5 MG/DL (0.2-1.0); TOTAL PROTEIN 4.7 GM/DL (6.4-8.2)
[2017-03-10] MEDS: FUROSEMIDE 40 MG/4 ML VIAL IV PUSH (08:37)
[2017-03-10] MEDS: CHLORHEXIDINE 0.12% (ORAL KIT) 15 ML CUP MT ×2 (08:37→20:08)
[2017-03-10] MEDS: SODIUM CHLORIDE 0.9% FLUSH 10 ML FLUSH IV FLUSH ×2 (08:37→20:08)
[2017-03-10] MEDS: ICU - POTASSIUM CHLORIDE/AQUEOUS SOLN 40 MEQ/100 ML IVPB IV ×2 (08:38→18:22)
[2017-03-10] MEDS: RESP: ALBUTEROL 2.5 MG/IPRATROPIUM 0.5 MG NEB (PRN) INH (09:27)
[2017-03-10] MEDS: MICAFUNGIN INJ 100 MG in SODIUM CHLORIDE 0.9% INJ 100 ML IV (10:52)
[2017-03-10] MEDS: FREE WATER J-TUBE ×2 (17:51→22:43)
[2017-03-10 18:04] LABS: ALBUMIN 2.7 GM/DL (3.4-5.0); ALT (GPT) 50 U/L (12-78); ANION GAP 7 MEQ/L (5-15); AST (GOT) 77 U/L (15-37); BICARBONATE 28.3 MEQ/L (21.0-32.0); BLOOD UREA NITROGEN 11 MG/DL (7-18); CALCIUM 8.1 MG/DL (8.5-10.1); CHLORIDE 118 MEQ/L (98-107); CREATININE 0.54 MG/DL (0.60-1.30); GLOMERULAR FILTRATION RATE 161 ML/MIN (>89); GLUCOSE,RANDOM 100 MG/DL (74-106); POTASSIUM 3.3 MEQ/L (3.5-5.1); SODIUM (NA) 153 MEQ/L (136-145)
[2017-03-10 18:05] LABS: ALKALINE PHOSPHATASE 49 U/L (45-117); TOTAL BILIRUBIN ADULT 0.6 MG/DL (0.2-1.0); TOTAL PROTEIN 5.6 GM/DL (6.4-8.2)
[2017-03-10] MEDS: fentaNYL DRIP 250 ML IV (20:07)
[2017-03-10] MEDS: FLUCONAZOLE 400 MG IV (20:07)
[2017-03-11] MEDS: HEPARIN SODIUM - SQ 10,000 UNITS/ML VIAL SQ ×3 (01:03→19:01)
[2017-03-11] MEDS: CHLORHEXIDINE GLUCONATE 2 % 1 PACK (2 CLOTHS) TOP (04:00)
[2017-03-11] MEDS: PIPERACIL-TAZO 4.5 GM PREMIX 100 ML IV ×4 (04:17→20:26)
[2017-03-11] MEDS: ALBUMIN 25% INJ 100 ML IV ×3 (04:17→20:26)
[2017-03-11] MEDS: FREE WATER J-TUBE ×4 (04:18→23:11)
[2017-03-11 06:07] LABS: AUTOMATED NEUTROPHIL # 6.4 TH/MM3 (1.8-7.7); BASOPHIL % 0.3 % (0.0-2.0); EOSINOPHIL # 0.1 TH/MM3 (0-0.4); EOSINOPHIL % 1.8 % (0.0-4.0); HEMATOCRIT 26.2 % (39.0-51.0); HEMO FLAGS DIFF FINAL; HEMOGLOBIN 8.5 GM/DL (13.0-17.0); LYMPH % 7.4 % (9.0-44.0); LYMPHOCYTE # 0.5 TH/MM3 (1.0-4.8); MEAN CELL VOLUME 84.4 FL (80.0-100.0); MEAN CORPUSCULAR HEMOGLOBIN 27.3 PG (27.0-34.0); MEAN CORPUSCULAR HGB CONC 32.3 % (32.0-36.0); MEAN PLATELET VOLUME 7.3 FL (7.0-11.0); MONOCYTE # 0.4 TH/MM3 (0-0.9); NEUT % 85.5 % (16.0-70.0); PLATELET COUNT 189 TH/MM3 (150-450); RED BLOOD COUNT 3.11 MIL/MM3 (4.50-5.90); RED CELL DISTRIBUTION WIDTH 17.6 % (11.6-17.2); WHITE BLOOD COUNT 7.5 TH/MM3 (4.0-11.0)
[2017-03-11 06:31] LABS: ALBUMIN 2.7 GM/DL (3.4-5.0); ANION GAP 7 MEQ/L (5-15); AST (GOT) 58 U/L (15-37); BICARBONATE 26.8 MEQ/L (21.0-32.0); BLOOD UREA NITROGEN 12 MG/DL (7-18); CHLORIDE 117 MEQ/L (98-107); CREATININE 0.48 MG/DL (0.60-1.30); GLOMERULAR FILTRATION RATE 184 ML/MIN (>89); GLUCOSE,RANDOM 106 MG/DL (74-106); MAGNESIUM 1.9 MG/DL (1.5-2.5); POTASSIUM 3.2 MEQ/L (3.5-5.1); SODIUM (NA) 151 MEQ/L (136-145)
[2017-03-11 06:32] LABS: ALT (GPT) 39 U/L (12-78)
[2017-03-11 06:34] LABS: ALKALINE PHOSPHATASE 36 U/L (45-117); TOTAL BILIRUBIN ADULT 0.4 MG/DL (0.2-1.0); TOTAL PROTEIN 5.2 GM/DL (6.4-8.2)
[2017-03-11] MEDS: CHLORHEXIDINE 0.12% (ORAL KIT) 15 ML CUP MT ×2 (07:46→20:00)
[2017-03-11] MEDS: SODIUM CHLORIDE 0.9% FLUSH 10 ML FLUSH IV FLUSH ×2 (07:47→20:26)
[2017-03-11] MEDS: FUROSEMIDE 40 MG/4 ML VIAL IV PUSH (07:48)
[2017-03-11] MEDS: ICU - POTASSIUM CHLORIDE/AQUEOUS SOLN 40 MEQ/100 ML IVPB IV ×2 (07:49→10:53)
[2017-03-11] MEDS: LITHIUM CARBONATE 300 MG CAP PO ×2 (11:01→20:26)
[2017-03-11] MEDS: ZIPRASIDONE HCL 60 MG CAP PO ×2 (11:01→20:26)
[2017-03-11] MEDS: DEXTROSE 5% IN WATE 1000ML INJ 1,000 ML IV (11:02)
[2017-03-11] MEDS: PHARMACY ORDERED LAB (11:02)
[2017-03-11] MEDS: PANTOPRAZOLE SODIUM 40 MG VIAL IV PUSH ×2 (11:02→23:11)
[2017-03-11] MEDS: MICAFUNGIN INJ 100 MG in SODIUM CHLORIDE 0.9% INJ 100 ML IV (11:03)
[2017-03-11 12:01] LABS: VANCOMYCIN TROUGH 20.1 MCG/ML (5.0-10.0)
[2017-03-11] MEDS: VANCOMYCIN 1,000 MG/NS 250 ML IV (18:05)
[2017-03-11] MEDS: ONDANSETRON HCL 4 MG/2 ML VIAL IV PUSH (19:44)
[2017-03-11] MEDS: MORPHINE SULFATE 2 MG/ML INJ IV PUSH ×2 (19:44→23:11)
[2017-03-12] MEDS: DEXTROSE 5% IN WATE 1000ML INJ 1,000 ML IV ×2 (02:15→13:46)
[2017-03-12] MEDS: CHLORHEXIDINE GLUCONATE 2 % 1 PACK (2 CLOTHS) TOP (04:00)
[2017-03-12] MEDS: MORPHINE SULFATE 2 MG/ML INJ IV PUSH ×3 (04:09→14:32)
[2017-03-12] MEDS: ALBUMIN 25% INJ 100 ML IV ×3 (04:09→20:08)
[2017-03-12] MEDS: PIPERACIL-TAZO 4.5 GM PREMIX 100 ML IV ×4 (04:09→20:07)
[2017-03-12] MEDS: FREE WATER J-TUBE ×4 (04:10→22:21)
[2017-03-12] MEDS: VANCOMYCIN 1,000 MG/NS 250 ML IV ×2 (04:10→17:12)
[2017-03-12] MEDS: HEPARIN SODIUM - SQ 10,000 UNITS/ML VIAL SQ ×3 (04:11→18:23)
[2017-03-12 05:09] LABS: AUTOMATED NEUTROPHIL # 7.8 TH/MM3 (1.8-7.7); BASOPHIL # 0.1 TH/MM3 (0-0.2); BASOPHIL % 0.6 % (0.0-2.0); EOSINOPHIL # 0.1 TH/MM3 (0-0.4); EOSINOPHIL % 1.3 % (0.0-4.0); HEMO FLAGS DIFF FINAL; HEMOGLOBIN 9.4 GM/DL (13.0-17.0); LYMPHOCYTE # 0.6 TH/MM3 (1.0-4.8); MEAN CELL VOLUME 83.4 FL (80.0-100.0); MEAN CORPUSCULAR HEMOGLOBIN 28.1 PG (27.0-34.0); MEAN CORPUSCULAR HGB CONC 33.6 % (32.0-36.0); MEAN PLATELET VOLUME 7.4 FL (7.0-11.0); MONO % 6.2 % (0.0-8.0); MONOCYTE # 0.6 TH/MM3 (0-0.9); NEUT % 84.9 % (16.0-70.0); PLATELET COUNT 230 TH/MM3 (150-450); RED BLOOD COUNT 3.36 MIL/MM3 (4.50-5.90); RED CELL DISTRIBUTION WIDTH 17.5 % (11.6-17.2); WHITE BLOOD COUNT 9.2 TH/MM3 (4.0-11.0)
[2017-03-12 05:36] LABS: ALBUMIN 3.1 GM/DL (3.4-5.0); ALT (GPT) 37 U/L (12-78); ANION GAP 4 MEQ/L (5-15); AST (GOT) 50 U/L (15-37); BICARBONATE 31.4 MEQ/L (21.0-32.0); BLOOD UREA NITROGEN 11 MG/DL (7-18); CALCIUM 8.3 MG/DL (8.5-10.1); CHLORIDE 114 MEQ/L (98-107); CREATININE 0.57 MG/DL (0.60-1.30); GLOMERULAR FILTRATION RATE 151 ML/MIN (>89); GLUCOSE,RANDOM 109 MG/DL (74-106); MAGNESIUM 1.8 MG/DL (1.5-2.5); POTASSIUM 3.2 MEQ/L (3.5-5.1); SODIUM (NA) 149 MEQ/L (136-145)
[2017-03-12 05:38] LABS: ALKALINE PHOSPHATASE 37 U/L (45-117); TOTAL BILIRUBIN ADULT 0.4 MG/DL (0.2-1.0); TOTAL PROTEIN 5.8 GM/DL (6.4-8.2)
[2017-03-12] MEDS: ICU - POTASSIUM CHLORIDE/AQUEOUS SOLN 40 MEQ/100 ML IVPB IV ×2 (06:33→11:15)
[2017-03-12] MEDS: CHLORHEXIDINE 0.12% (ORAL KIT) 15 ML CUP MT ×2 (07:21→20:00)
[2017-03-12] MEDS: SODIUM CHLORIDE 0.9% FLUSH 10 ML FLUSH IV FLUSH ×2 (09:00→20:08)
[2017-03-12] MEDS: ZIPRASIDONE HCL 60 MG CAP PO ×2 (09:02→20:07)
[2017-03-12] MEDS: LITHIUM CARBONATE 300 MG CAP PO ×2 (09:03→20:07)
[2017-03-12] MEDS: FUROSEMIDE 40 MG/4 ML VIAL IV PUSH (09:03)
[2017-03-12] MEDS: PANTOPRAZOLE SODIUM 40 MG VIAL IV PUSH ×2 (10:39→22:20)
[2017-03-12] MEDS: MICAFUNGIN INJ 100 MG in SODIUM CHLORIDE 0.9% INJ 100 ML IV (11:15)
[2017-03-12 19:22] LABS: POTASSIUM 3.7 MEQ/L (3.5-5.1)
[2017-03-12 19:26] LABS: PHOSPHORUS 1.5 MG/DL (2.5-4.9)
[2017-03-12] MEDS: oxyCODONE/ACETAMINOPHEN 7.5 MG/325 MG TAB PO (20:07)
[2017-03-13] MEDS: ALBUMIN 25% INJ 100 ML IV ×2 (03:19→12:13)
[2017-03-13] MEDS: HEPARIN SODIUM - SQ 10,000 UNITS/ML VIAL SQ ×3 (03:19→18:05)
[2017-03-13] MEDS: PIPERACIL-TAZO 4.5 GM PREMIX 100 ML IV ×4 (03:19→22:20)
[2017-03-13] MEDS: CHLORHEXIDINE GLUCONATE 2 % 1 PACK (2 CLOTHS) TOP (03:20)
[2017-03-13] MEDS: DEXTROSE 5% IN WATE 1000ML INJ 1,000 ML IV ×2 (03:21→16:52)
[2017-03-13] MEDS: oxyCODONE/ACETAMINOPHEN 7.5 MG/325 MG TAB PO (04:14)
[2017-03-13] MEDS: VANCOMYCIN 1,000 MG/NS 250 ML IV ×2 (05:03→17:08)
[2017-03-13] MEDS: PHARMACY ORDERED LAB (05:03)
[2017-03-13] MEDS: FREE WATER J-TUBE ×3 (05:03→17:08)
[2017-03-13 05:13] LABS: VANCOMYCIN TROUGH 15.3 MCG/ML (5.0-10.0)
[2017-03-13] MEDS: CHLORHEXIDINE 0.12% (ORAL KIT) 15 ML CUP MT ×2 (07:13→20:44)
[2017-03-13] MEDS: FUROSEMIDE 20 MG/2 ML VIAL IV PUSH (08:31)
[2017-03-13] MEDS: ZIPRASIDONE HCL 60 MG CAP PO ×2 (08:31→20:45)
[2017-03-13] MEDS: LITHIUM CARBONATE 300 MG CAP PO ×2 (08:31→20:45)
[2017-03-13] MEDS: SODIUM CHLORIDE 0.9% FLUSH 10 ML FLUSH IV FLUSH ×2 (08:31→20:45)
[2017-03-13] MEDS: PANTOPRAZOLE SODIUM 40 MG VIAL IV PUSH ×2 (10:15→23:40)
[2017-03-13] MEDS: MICAFUNGIN INJ 100 MG in SODIUM CHLORIDE 0.9% INJ 100 ML IV (12:13)
[2017-03-13] MEDS ORDERED: RESP: ALBUTEROL 2.5 MG/3 ML NEB (PRN) NEB (20:15)
[2017-03-13] MEDS: RESP: ALBUTEROL 2.5 MG/IPRATROPIUM 0.5 MG NEB (SCH) NEB (21:55)
[2017-03-13] MEDS: ARTIFICIAL TEARS OPTH SOLN 15 ML BTL EACH EYE (22:21)
[2017-03-14 03:07] LABS: AUTOMATED NEUTROPHIL # 13.8 TH/MM3 (1.8-7.7); BASOPHIL % 0.3 % (0.0-2.0); EOSINOPHIL # 0.1 TH/MM3 (0-0.4); EOSINOPHIL % 0.9 % (0.0-4.0); HEMATOCRIT 31.4 % (39.0-51.0); HEMO FLAGS DIFF FINAL; HEMOGLOBIN 10.6 GM/DL (13.0-17.0); LYMPH % 6.3 % (9.0-44.0); MEAN CELL VOLUME 82.3 FL (80.0-100.0); MEAN CORPUSCULAR HEMOGLOBIN 27.7 PG (27.0-34.0); MEAN CORPUSCULAR HGB CONC 33.6 % (32.0-36.0); MEAN PLATELET VOLUME 8.2 FL (7.0-11.0); MONOCYTE # 0.8 TH/MM3 (0-0.9); NEUT % 87.5 % (16.0-70.0); PLATELET COUNT 336 TH/MM3 (150-450); RED BLOOD COUNT 3.82 MIL/MM3 (4.50-5.90); RED CELL DISTRIBUTION WIDTH 17.6 % (11.6-17.2); WHITE BLOOD COUNT 15.8 TH/MM3 (4.0-11.0)
[2017-03-14] MEDS: PIPERACIL-TAZO 4.5 GM PREMIX 100 ML IV ×4 (03:16→20:21)
[2017-03-14] MEDS: CHLORHEXIDINE GLUCONATE 2 % 1 PACK (2 CLOTHS) TOP (03:16)
[2017-03-14] MEDS: HEPARIN SODIUM - SQ 10,000 UNITS/ML VIAL SQ ×3 (03:16→20:21)
[2017-03-14 03:23] LABS: APTT (PATIENT) 31.3 SEC (24.3-30.1); INTERNATIONAL NORMALIZED RATIO 1.1 RATIO; PROTHROMBIN TIME - PATIENT 11.2 SEC (9.8-11.6)
[2017-03-14 03:25] LABS: AMMONIA 35 MCMOL/L (11-32)
[2017-03-14 03:33] LABS: ALBUMIN 3.2 GM/DL (3.4-5.0); ALKALINE PHOSPHATASE 42 U/L (45-117); ALT (GPT) 48 U/L (12-78); ANION GAP 5 MEQ/L (5-15); AST (GOT) 42 U/L (15-37); BICARBONATE 30.7 MEQ/L (21.0-32.0); BLOOD UREA NITROGEN 15 MG/DL (7-18); CALCIUM 8.6 MG/DL (8.5-10.1); CHLORIDE 105 MEQ/L (98-107); CREATININE 0.58 MG/DL (0.60-1.30); FREE T4 0.88 NG/DL (0.76-1.46); GLOMERULAR FILTRATION RATE 148 ML/MIN (>89); GLUCOSE,RANDOM 104 MG/DL (74-106); PHOSPHORUS 1.7 MG/DL (2.5-4.9); POTASSIUM 3.2 MEQ/L (3.5-5.1); SODIUM (NA) 141 MEQ/L (136-145); TOTAL BILIRUBIN ADULT 0.5 MG/DL (0.2-1.0); TOTAL PROTEIN 6.4 GM/DL (6.4-8.2)
[2017-03-14 04:17] LABS: LITHIUM 0.7 MEQ/L (0.5-1.5)
[2017-03-14] MEDS: RESP: ALBUTEROL 2.5 MG/IPRATROPIUM 0.5 MG NEB (SCH) NEB ×4 (04:35→20:44)
[2017-03-14] MEDS: FREE WATER J-TUBE ×5 (05:16→22:13)
[2017-03-14] MEDS: VANCOMYCIN 1,000 MG/NS 250 ML IV (05:16)
[2017-03-14] MEDS: CHLORHEXIDINE 0.12% (ORAL KIT) 15 ML CUP MT ×2 (08:00→20:00)
[2017-03-14] MEDS: DEXTROSE 5% IN WATE 1000ML INJ 1,000 ML IV (09:03)
[2017-03-14] MEDS: FUROSEMIDE 20 MG/2 ML VIAL IV PUSH (09:17)
[2017-03-14] MEDS: LITHIUM CARBONATE 300 MG CAP PO ×2 (09:18→20:21)
[2017-03-14] MEDS: ZIPRASIDONE HCL 60 MG CAP PO ×2 (09:18→20:21)
[2017-03-14] MEDS: ICU - POTASSIUM CHLORIDE/AQUEOUS SOLN 40 MEQ/100 ML IVPB IV (09:18)
[2017-03-14] MEDS: PANTOPRAZOLE SODIUM 40 MG VIAL IV PUSH ×2 (11:16→22:13)
[2017-03-14] MEDS: SODIUM CHLORIDE 0.9% FLUSH 10 ML FLUSH IV FLUSH ×2 (11:17→20:21)
[2017-03-14] MEDS: MICAFUNGIN INJ 100 MG in SODIUM CHLORIDE 0.9% INJ 100 ML IV (12:24)
[2017-03-14] MEDS: DEXT 5%-NACL 0.45% 1000 ML INJ 1,000 ML IV (13:35)
[2017-03-14] MEDS: ARTIFICIAL TEARS OPTH SOLN 15 ML BTL EACH EYE ×3 (14:00→20:22)
[2017-03-14] MEDS: POTASSIUM PHOSPHATE INJ 30 MMOL in SODIUM CHLOR 0.9% 250 ML INJ 250 ML IV (14:38)
[2017-03-15] MEDS: PIPERACIL-TAZO 4.5 GM PREMIX 100 ML IV ×4 (03:26→22:47)
[2017-03-15] MEDS: HEPARIN SODIUM - SQ 10,000 UNITS/ML VIAL SQ ×3 (03:26→18:24)
[2017-03-15] MEDS: CHLORHEXIDINE GLUCONATE 2 % 1 PACK (2 CLOTHS) TOP (03:26)
[2017-03-15] MEDS: DEXT 5%-NACL 0.45% 1000 ML INJ 1,000 ML IV ×2 (03:27→23:11)
[2017-03-15] MEDS: RESP: ALBUTEROL 2.5 MG/IPRATROPIUM 0.5 MG NEB (SCH) NEB ×4 (03:49→21:41)
[2017-03-15] MEDS: ARTIFICIAL TEARS OPTH SOLN 15 ML BTL EACH EYE ×3 (04:13→22:49)
[2017-03-15] MEDS: FREE WATER J-TUBE ×4 (04:14→22:47)
[2017-03-15 05:10] LABS: AUTOMATED NEUTROPHIL # 14.6 TH/MM3 (1.8-7.7); BASOPHIL # 0.1 TH/MM3 (0-0.2); BASOPHIL % 0.3 % (0.0-2.0); EOSINOPHIL # 0.1 TH/MM3 (0-0.4); EOSINOPHIL % 0.9 % (0.0-4.0); HEMATOCRIT 35.5 % (39.0-51.0); HEMO FLAGS DIFF FINAL; HEMOGLOBIN 11.5 GM/DL (13.0-17.0); LYMPH % 6.1 % (9.0-44.0); MEAN CELL VOLUME 83.6 FL (80.0-100.0); MEAN CORPUSCULAR HEMOGLOBIN 27.1 PG (27.0-34.0); MEAN CORPUSCULAR HGB CONC 32.4 % (32.0-36.0); MEAN PLATELET VOLUME 8.4 FL (7.0-11.0); MONO % 3.9 % (0.0-8.0); MONOCYTE # 0.6 TH/MM3 (0-0.9); NEUT % 88.8 % (16.0-70.0); PLATELET COUNT 444 TH/MM3 (150-450); RED BLOOD COUNT 4.25 MIL/MM3 (4.50-5.90); RED CELL DISTRIBUTION WIDTH 17.9 % (11.6-17.2); WHITE BLOOD COUNT 16.4 TH/MM3 (4.0-11.0)
[2017-03-15 05:19] LABS: ANION GAP 6 MEQ/L (5-15); BICARBONATE 27.3 MEQ/L (21.0-32.0); BLOOD UREA NITROGEN 13 MG/DL (7-18); CHLORIDE 107 MEQ/L (98-107); CREATININE 0.62 MG/DL (0.60-1.30); GLOMERULAR FILTRATION RATE 137 ML/MIN (>89); GLUCOSE,RANDOM 105 MG/DL (74-106); MAGNESIUM 2.4 MG/DL (1.5-2.5); PHOSPHORUS 2.4 MG/DL (2.5-4.9); POTASSIUM 4.3 MEQ/L (3.5-5.1); SODIUM (NA) 140 MEQ/L (136-145)
[2017-03-15] MEDS: CHLORHEXIDINE 0.12% (ORAL KIT) 15 ML CUP MT ×2 (08:00→20:00)
[2017-03-15] MEDS: Post-op Orders (for Pharmacy) XX (08:08)
[2017-03-15] MEDS: FUROSEMIDE 20 MG/2 ML VIAL IV PUSH (09:47)
[2017-03-15] MEDS: SODIUM CHLORIDE 0.9% FLUSH 10 ML FLUSH IV FLUSH ×2 (09:47→23:11)
[2017-03-15] MEDS: PANTOPRAZOLE SODIUM 40 MG VIAL IV PUSH ×2 (09:48→22:47)
[2017-03-15] MEDS: LITHIUM CARBONATE 300 MG CAP PO ×2 (09:48→22:47)
[2017-03-15] MEDS: ZIPRASIDONE HCL 60 MG CAP PO ×2 (09:48→22:46)
[2017-03-15] MEDS: MICAFUNGIN INJ 100 MG in SODIUM CHLORIDE 0.9% INJ 100 ML IV (13:28)
[2017-03-15] MEDS: ICU - POTASSIUM PHOSPHATE 30 MMOL/NS 250 ML IV (13:28)
[2017-03-15] MEDS: MORPHINE SULFATE 2 MG/ML INJ IV PUSH ×2 (18:24→23:10)
[2017-03-16] MEDS: CHLORHEXIDINE GLUCONATE 2 % 1 PACK (2 CLOTHS) TOP (02:47)
[2017-03-16] MEDS: PIPERACIL-TAZO 4.5 GM PREMIX 100 ML IV ×3 (03:00→15:55)
[2017-03-16] MEDS: HEPARIN SODIUM - SQ 10,000 UNITS/ML VIAL SQ ×3 (03:01→17:36)
[2017-03-16] MEDS: RESP: ALBUTEROL 2.5 MG/IPRATROPIUM 0.5 MG NEB (SCH) NEB ×4 (04:30→20:37)
[2017-03-16] MEDS: FREE WATER J-TUBE ×3 (05:07→17:35)
[2017-03-16] MEDS: ARTIFICIAL TEARS OPTH SOLN 15 ML BTL EACH EYE ×3 (05:08→22:00)
[2017-03-16] MEDS: CHLORHEXIDINE 0.12% (ORAL KIT) 15 ML CUP MT ×2 (08:00→20:00)
[2017-03-16] MEDS: LITHIUM CARBONATE 300 MG CAP PO (08:48)
[2017-03-16] MEDS: ZIPRASIDONE HCL 60 MG CAP PO (08:48)
[2017-03-16] MEDS: FUROSEMIDE 20 MG/2 ML VIAL IV PUSH (08:49)
[2017-03-16] MEDS: SODIUM CHLORIDE 0.9% FLUSH 10 ML FLUSH IV FLUSH (08:52)
[2017-03-16 09:16] LABS: AUTOMATED NEUTROPHIL # 19.3 TH/MM3 (1.8-7.7); BASOPHIL % 0.2 % (0.0-2.0); EOSINOPHIL # 0.1 TH/MM3 (0-0.4); EOSINOPHIL % 0.4 % (0.0-4.0); HEMATOCRIT 34.8 % (39.0-51.0); HEMO FLAGS DIFF FINAL; HEMOGLOBIN 11.1 GM/DL (13.0-17.0); LYMPH % 4.6 % (9.0-44.0); MEAN CELL VOLUME 84.9 FL (80.0-100.0); MEAN CORPUSCULAR HEMOGLOBIN 27.1 PG (27.0-34.0); MEAN CORPUSCULAR HGB CONC 31.9 % (32.0-36.0); MEAN PLATELET VOLUME 8.4 FL (7.0-11.0); MONO % 2.7 % (0.0-8.0); MONOCYTE # 0.6 TH/MM3 (0-0.9); NEUT % 92.1 % (16.0-70.0); PLATELET COUNT 490 TH/MM3 (150-450); RED CELL DISTRIBUTION WIDTH 18.4 % (11.6-17.2)
[2017-03-16 09:50] LABS: ALBUMIN 2.8 GM/DL (3.4-5.0); ANION GAP 7 MEQ/L (5-15); AST (GOT) 21 U/L (15-37); BICARBONATE 26.2 MEQ/L (21.0-32.0); BLOOD UREA NITROGEN 13 MG/DL (7-18); CALCIUM 8.8 MG/DL (8.5-10.1); CHLORIDE 108 MEQ/L (98-107); CREATININE 0.67 MG/DL (0.60-1.30); GLOMERULAR FILTRATION RATE 126 ML/MIN (>89); GLUCOSE,RANDOM 101 MG/DL (74-106); MAGNESIUM 2.6 MG/DL (1.5-2.5); POTASSIUM 4.2 MEQ/L (3.5-5.1); SODIUM (NA) 141 MEQ/L (136-145)
[2017-03-16 09:53] LABS: ALKALINE PHOSPHATASE 57 U/L (45-117); ALT (GPT) 44 U/L (12-78); PHOSPHORUS 2.2 MG/DL (2.5-4.9); TOTAL BILIRUBIN ADULT 0.3 MG/DL (0.2-1.0); TOTAL PROTEIN 6.8 GM/DL (6.4-8.2)
[2017-03-16] MEDS: PANTOPRAZOLE SODIUM 40 MG VIAL IV PUSH (10:43)
[2017-03-16] MEDS: MICAFUNGIN INJ 100 MG in SODIUM CHLORIDE 0.9% INJ 100 ML IV (10:45)
[2017-03-16] MEDS: DIATRIZOATE MEGLUM/DIATRIZOATE SOD 9 ML CUP PO (12:50)
[2017-03-16] MEDS: MORPHINE SULFATE 2 MG/ML INJ IV PUSH (13:02)
[2017-03-16] MEDS: IOHEXOL 350 MG/ML 10 ML VIAL (for RAD DIAG) IVCONTRAST (15:16)
[2017-03-16] MEDS: DEXT 5%-NACL 0.45% 1000 ML INJ 1,000 ML IV (22:37)
[2017-03-17] MEDS: PANTOPRAZOLE SODIUM 40 MG VIAL IV PUSH ×3 (00:03→20:49)
[2017-03-17] MEDS: ZIPRASIDONE HCL 60 MG CAP PO ×3 (00:03→20:38)
[2017-03-17] MEDS: LITHIUM CARBONATE 300 MG CAP PO ×3 (00:03→20:38)
[2017-03-17] MEDS: PIPERACIL-TAZO 4.5 GM PREMIX 100 ML IV ×5 (00:11→20:40)
[2017-03-17] MEDS: SODIUM CHLORIDE 0.9% FLUSH 10 ML FLUSH IV FLUSH ×3 (00:12→20:38)
[2017-03-17] MEDS: CHLORHEXIDINE GLUCONATE 2 % 1 PACK (2 CLOTHS) TOP (02:11)
[2017-03-17] MEDS: RESP: ALBUTEROL 2.5 MG/IPRATROPIUM 0.5 MG NEB (SCH) NEB ×4 (03:42→21:35)
[2017-03-17] MEDS: HEPARIN SODIUM - SQ 10,000 UNITS/ML VIAL SQ ×3 (04:52→17:49)
[2017-03-17] MEDS: ARTIFICIAL TEARS OPTH SOLN 15 ML BTL EACH EYE ×3 (04:54→20:39)
[2017-03-17] MEDS: FREE WATER J-TUBE ×4 (05:02→17:44)
[2017-03-17] MEDS: CHLORHEXIDINE 0.12% (ORAL KIT) 15 ML CUP MT ×2 (08:00→20:00)
[2017-03-17] MEDS: FUROSEMIDE 20 MG/2 ML VIAL IV PUSH (10:48)
[2017-03-17] MEDS: MICAFUNGIN INJ 100 MG in SODIUM CHLORIDE 0.9% INJ 100 ML IV (12:57)
[2017-03-17 13:00] LABS: C. DIFF EPI 027 PRESUMPTIVE NEGATIVE (NEGATIVE); C. DIFF TOXIN PCR NEGATIVE (NEGATIVE)
[2017-03-17] MEDS: DEXT 5%-NACL 0.45% 1000 ML INJ 1,000 ML IV (20:43)
[2017-03-17 22:18] LABS: AUTOMATED NEUTROPHIL # 17.6 TH/MM3 (1.8-7.7); BASOPHIL # 0.1 TH/MM3 (0-0.2); BASOPHIL % 0.4 % (0.0-2.0); EOSINOPHIL # 0.2 TH/MM3 (0-0.4); EOSINOPHIL % 0.8 % (0.0-4.0); HEMATOCRIT 29.8 % (39.0-51.0); HEMO FLAGS DIFF FINAL; HEMOGLOBIN 9.7 GM/DL (13.0-17.0); LYMPH % 5.6 % (9.0-44.0); LYMPHOCYTE # 1.1 TH/MM3 (1.0-4.8); MEAN CELL VOLUME 85.2 FL (80.0-100.0); MEAN CORPUSCULAR HEMOGLOBIN 27.8 PG (27.0-34.0); MEAN CORPUSCULAR HGB CONC 32.6 % (32.0-36.0); MEAN PLATELET VOLUME 8.3 FL (7.0-11.0); MONO % 4.1 % (0.0-8.0); MONOCYTE # 0.8 TH/MM3 (0-0.9); NEUT % 89.1 % (16.0-70.0); PLATELET COUNT 622 TH/MM3 (150-450); RED CELL DISTRIBUTION WIDTH 18.2 % (11.6-17.2); WHITE BLOOD COUNT 19.8 TH/MM3 (4.0-11.0)
[2017-03-17 22:19] LABS: ANION GAP 4 MEQ/L (5-15); BLOOD UREA NITROGEN 11 MG/DL (7-18); CALCIUM 8.2 MG/DL (8.5-10.1); CHLORIDE 105 MEQ/L (98-107); CREATININE 0.57 MG/DL (0.60-1.30); GLOMERULAR FILTRATION RATE 151 ML/MIN (>89); GLUCOSE,RANDOM 104 MG/DL (74-106); POTASSIUM 3.9 MEQ/L (3.5-5.1); SODIUM (NA) 138 MEQ/L (136-145)
[2017-03-18] MEDS: CHLORHEXIDINE GLUCONATE 2 % 1 PACK (2 CLOTHS) TOP (04:00)
[2017-03-18] MEDS: FREE WATER J-TUBE ×5 (05:28→23:38)
[2017-03-18] MEDS: ARTIFICIAL TEARS OPTH SOLN 15 ML BTL EACH EYE ×3 (05:38→20:28)
[2017-03-18] MEDS: PIPERACIL-TAZO 4.5 GM PREMIX 100 ML IV ×4 (05:39→20:22)
[2017-03-18] MEDS: HEPARIN SODIUM - SQ 10,000 UNITS/ML VIAL SQ ×3 (05:40→16:43)
[2017-03-18] MEDS: CHLORHEXIDINE 0.12% (ORAL KIT) 15 ML CUP MT ×2 (08:00→20:00)
[2017-03-18] MEDS: ZIPRASIDONE HCL 60 MG CAP PO ×2 (09:33→20:20)
[2017-03-18] MEDS: PANTOPRAZOLE SODIUM 40 MG VIAL IV PUSH ×2 (09:33→22:07)
[2017-03-18] MEDS: FUROSEMIDE 20 MG/2 ML VIAL IV PUSH (09:33)
[2017-03-18] MEDS: LITHIUM CARBONATE 300 MG CAP PO ×2 (09:34→20:20)
[2017-03-18] MEDS: SODIUM CHLORIDE 0.9% FLUSH 10 ML FLUSH IV FLUSH ×2 (09:34→20:21)
[2017-03-18] MEDS: MICAFUNGIN INJ 100 MG in SODIUM CHLORIDE 0.9% INJ 100 ML IV (12:18)
[2017-03-18] MEDS: DEXT 5%-NACL 0.45% 1000 ML INJ 1,000 ML IV (22:37)
[2017-03-18] MEDS: MORPHINE SULFATE 2 MG/ML INJ IV PUSH (23:25)
[2017-03-19] MEDS: CHLORHEXIDINE GLUCONATE 2 % 1 PACK (2 CLOTHS) TOP (04:00)
[2017-03-19] MEDS: PIPERACIL-TAZO 4.5 GM PREMIX 100 ML IV ×4 (04:36→23:28)
[2017-03-19] MEDS: HEPARIN SODIUM - SQ 10,000 UNITS/ML VIAL SQ ×3 (04:38→18:18)
[2017-03-19] MEDS: FREE WATER J-TUBE ×2 (04:44→23:33)
[2017-03-19] MEDS: ARTIFICIAL TEARS OPTH SOLN 15 ML BTL EACH EYE ×2 (04:45→20:40)
[2017-03-19] MEDS: SODIUM CHLORIDE 0.9% FLUSH 10 ML FLUSH IV FLUSH ×2 (09:00→20:40)
[2017-03-19] MEDS: ZIPRASIDONE HCL 60 MG CAP PO ×2 (10:21→20:39)
[2017-03-19] MEDS: FUROSEMIDE 20 MG/2 ML VIAL IV PUSH (10:21)
[2017-03-19] MEDS: LITHIUM CARBONATE 300 MG CAP PO ×2 (10:22→20:40)
[2017-03-19] MEDS: oxyCODONE/ACETAMINOPHEN 7.5 MG/325 MG TAB PO ×2 (10:26→18:13)
[2017-03-19] MEDS: PANTOPRAZOLE SODIUM 40 MG VIAL IV PUSH ×2 (10:26→23:29)
[2017-03-19] MEDS: MICAFUNGIN INJ 100 MG in SODIUM CHLORIDE 0.9% INJ 100 ML IV (10:27)
[2017-03-19 16:14] LABS: GLOMERULAR FILTRATION RATE 89 ML/MIN (>89)
[2017-03-19] MEDS: DEXT 5%-NACL 0.45% 1000 ML INJ 1,000 ML IV (18:19)
[2017-03-19] MEDS: CHLORHEXIDINE 0.12% (ORAL KIT) 15 ML CUP MT (20:00)
[2017-03-20] MEDS: HEPARIN SODIUM - SQ 10,000 UNITS/ML VIAL SQ ×3 (03:10→18:55)
[2017-03-20] MEDS: CHLORHEXIDINE GLUCONATE 2 % 1 PACK (2 CLOTHS) TOP (03:40)
[2017-03-20] MEDS: ARTIFICIAL TEARS OPTH SOLN 15 ML BTL EACH EYE ×3 (05:00→21:57)
[2017-03-20] MEDS: FREE WATER J-TUBE ×3 (05:00→21:57)
[2017-03-20] MEDS: PIPERACIL-TAZO 4.5 GM PREMIX 100 ML IV ×4 (05:00→21:55)
[2017-03-20] MEDS: ZIPRASIDONE HCL 60 MG CAP PO ×2 (09:27→21:55)
[2017-03-20] MEDS: LITHIUM CARBONATE 300 MG CAP PO ×2 (09:27→21:55)
[2017-03-20] MEDS: FUROSEMIDE 20 MG/2 ML VIAL IV PUSH (09:28)
[2017-03-20] MEDS: SODIUM CHLORIDE 0.9% FLUSH 10 ML FLUSH IV FLUSH ×2 (09:28→21:55)
[2017-03-20 11:37] LABS: ALBUMIN 2.6 GM/DL (3.4-5.0); ALT (GPT) 28 U/L (12-78); ANION GAP 5 MEQ/L (5-15); AST (GOT) 12 U/L (15-37); BLOOD UREA NITROGEN 10 MG/DL (7-18); CALCIUM 8.6 MG/DL (8.5-10.1); CHLORIDE 106 MEQ/L (98-107); CREATININE 0.66 MG/DL (0.60-1.30); GLOMERULAR FILTRATION RATE 128 ML/MIN (>89); GLUCOSE,RANDOM 95 MG/DL (74-106); POTASSIUM 3.9 MEQ/L (3.5-5.1); SODIUM (NA) 140 MEQ/L (136-145)
[2017-03-20 11:39] LABS: ALKALINE PHOSPHATASE 63 U/L (45-117); TOTAL BILIRUBIN ADULT 0.2 MG/DL (0.2-1.0); TOTAL PROTEIN 7.2 GM/DL (6.4-8.2)
[2017-03-20] MEDS: MICAFUNGIN INJ 100 MG in SODIUM CHLORIDE 0.9% INJ 100 ML IV (13:12)
[2017-03-20] MEDS: oxyCODONE/ACETAMINOPHEN 7.5 MG/325 MG TAB PO ×2 (13:13→18:53)
[2017-03-20 17:23] LABS: BASOPHIL # 0.1 TH/MM3 (0-0.2); BASOPHIL % 0.7 % (0.0-2.0); EOSINOPHIL # 0.1 TH/MM3 (0-0.4); EOSINOPHIL % 0.7 % (0.0-4.0); HEMATOCRIT 32.7 % (39.0-51.0); HEMO FLAGS DIFF FINAL; HEMOGLOBIN 10.7 GM/DL (13.0-17.0); LYMPH % 7.9 % (9.0-44.0); LYMPHOCYTE # 1.3 TH/MM3 (1.0-4.8); MEAN CELL VOLUME 83.3 FL (80.0-100.0); MEAN CORPUSCULAR HEMOGLOBIN 27.2 PG (27.0-34.0); MEAN CORPUSCULAR HGB CONC 32.6 % (32.0-36.0); MEAN PLATELET VOLUME 7.6 FL (7.0-11.0); MONO % 7.2 % (0.0-8.0); MONOCYTE # 1.2 TH/MM3 (0-0.9); NEUT % 83.5 % (16.0-70.0); RED BLOOD COUNT 3.93 MIL/MM3 (4.50-5.90); RED CELL DISTRIBUTION WIDTH 18.3 % (11.6-17.2); WHITE BLOOD COUNT 16.8 TH/MM3 (4.0-11.0)
[2017-03-20 18:11] LABS: PLATELET COUNT 1030 TH/MM3 (150-450)
[2017-03-20] MEDS: PANTOPRAZOLE SODIUM 40 MG VIAL IV PUSH (18:53)
[2017-03-20] MEDS: CHLORHEXIDINE 0.12% (ORAL KIT) 15 ML CUP MT (21:56)
[2017-03-20] MEDS: DEXT 5%-NACL 0.45% 1000 ML INJ 1,000 ML IV (21:57)
[2017-03-21] MEDS: HEPARIN SODIUM - SQ 10,000 UNITS/ML VIAL SQ ×3 (02:07→16:50)
[2017-03-21] MEDS: PANTOPRAZOLE SODIUM 40 MG VIAL IV PUSH ×2 (02:12→09:07)
[2017-03-21] MEDS: CHLORHEXIDINE GLUCONATE 2 % 1 PACK (2 CLOTHS) TOP (04:00)
[2017-03-21] MEDS: PIPERACIL-TAZO 4.5 GM PREMIX 100 ML IV ×2 (04:18→09:08)
[2017-03-21] MEDS: FREE WATER J-TUBE ×4 (04:19→23:57)
[2017-03-21] MEDS: ARTIFICIAL TEARS OPTH SOLN 15 ML BTL EACH EYE ×3 (04:22→22:00)
[2017-03-21 07:57] LABS: AUTOMATED NEUTROPHIL # 12.1 TH/MM3 (1.8-7.7); BASOPHIL # 0.1 TH/MM3 (0-0.2); BASOPHIL % 0.5 % (0.0-2.0); EOSINOPHIL # 0.2 TH/MM3 (0-0.4); EOSINOPHIL % 1.3 % (0.0-4.0); HEMATOCRIT 32.1 % (39.0-51.0); HEMO FLAGS DIFF FINAL; HEMOGLOBIN 10.4 GM/DL (13.0-17.0); LYMPH % 8.8 % (9.0-44.0); LYMPHOCYTE # 1.3 TH/MM3 (1.0-4.8); MEAN CELL VOLUME 83.6 FL (80.0-100.0); MEAN CORPUSCULAR HGB CONC 32.2 % (32.0-36.0); MEAN PLATELET VOLUME 7.6 FL (7.0-11.0); MONO % 7.1 % (0.0-8.0); NEUT % 82.3 % (16.0-70.0); PLATELET COUNT 1116 TH/MM3 (150-450); RED BLOOD COUNT 3.84 MIL/MM3 (4.50-5.90); RED CELL DISTRIBUTION WIDTH 18.4 % (11.6-17.2); WHITE BLOOD COUNT 14.7 TH/MM3 (4.0-11.0)
[2017-03-21] MEDS: CHLORHEXIDINE 0.12% (ORAL KIT) 15 ML CUP MT ×2 (08:00→19:50)
[2017-03-21 08:08] LABS: ANION GAP 6 MEQ/L (5-15); BLOOD UREA NITROGEN 13 MG/DL (7-18); CALCIUM 9.4 MG/DL (8.5-10.1); CHLORIDE 103 MEQ/L (98-107); CREATININE 0.72 MG/DL (0.60-1.30); GLOMERULAR FILTRATION RATE 116 ML/MIN (>89); GLUCOSE,RANDOM 69 MG/DL (74-106); PHOSPHORUS 3.1 MG/DL (2.5-4.9); POTASSIUM 4.2 MEQ/L (3.5-5.1); SODIUM (NA) 136 MEQ/L (136-145)
[2017-03-21] MEDS: SODIUM CHLORIDE 0.9% FLUSH 10 ML FLUSH IV FLUSH ×2 (09:00→19:52)
[2017-03-21] MEDS: ZIPRASIDONE HCL 60 MG CAP PO ×2 (09:07→19:53)
[2017-03-21] MEDS: LITHIUM CARBONATE 300 MG CAP PO ×2 (09:07→19:52)
[2017-03-21] MEDS: FUROSEMIDE 20 MG/2 ML VIAL IV PUSH (09:08)
[2017-03-21] MEDS: MICAFUNGIN INJ 100 MG in SODIUM CHLORIDE 0.9% INJ 100 ML IV (11:21)
[2017-03-21] MEDS: oxyCODONE/ACETAMINOPHEN 7.5 MG/325 MG TAB PO ×2 (12:34→18:07)
[2017-03-21 13:11] LABS: AMORPHOUS SEDIMENT, URINE OCC; BILIRUBIN, URINE NEG (NEG); BLOOD, URINE NEG (NEG); GLUCOSE,URINE NEG (NEG); KETONE, URINE NEG (NEG); NITRITE,URINE NEG (NEG); URINE COLOR LIGHT-YELLOW (YELLW/STRAW); URINE LEUKOCYTE ESTERASE NEG (NEG)
[2017-03-21 13:12] LABS: COMMENT (UR) CULT NOT INDICATED; CULTURE IF INDICATED CULT NOT INDICATED
[2017-03-22] MEDS: HEPARIN SODIUM - SQ 10,000 UNITS/ML VIAL SQ ×3 (01:18→17:23)
[2017-03-22] MEDS: oxyCODONE/ACETAMINOPHEN 7.5 MG/325 MG TAB PO ×2 (03:14→17:26)
[2017-03-22] MEDS: CHLORHEXIDINE GLUCONATE 2 % 1 PACK (2 CLOTHS) TOP (04:00)
[2017-03-22] MEDS: ARTIFICIAL TEARS OPTH SOLN 15 ML BTL EACH EYE ×3 (05:36→22:00)
[2017-03-22] MEDS: FREE WATER J-TUBE ×3 (05:36→17:23)
[2017-03-22] MEDS: CHLORHEXIDINE 0.12% (ORAL KIT) 15 ML CUP MT ×2 (08:00→20:00)
[2017-03-22] MEDS: ZIPRASIDONE HCL 60 MG CAP PO ×2 (08:41→20:07)
[2017-03-22] MEDS: LITHIUM CARBONATE 300 MG CAP PO ×2 (08:41→20:08)
[2017-03-22] MEDS: PANTOPRAZOLE SOD 40 MG DELAYED RELEASE TAB PO (08:41)
[2017-03-22] MEDS: SODIUM CHLORIDE 0.9% FLUSH 10 ML FLUSH IV FLUSH ×2 (08:42→20:07)
[2017-03-22 10:37] LABS: CREATININE 0.64 MG/DL (0.60-1.30); GLOMERULAR FILTRATION RATE 132 ML/MIN (>89)
[2017-03-22] MEDS: MICAFUNGIN INJ 100 MG in SODIUM CHLORIDE 0.9% INJ 100 ML IV (12:15)
[2017-03-23] MEDS: HEPARIN SODIUM - SQ 10,000 UNITS/ML VIAL SQ ×2 (00:25→10:27)
[2017-03-23] MEDS: FREE WATER J-TUBE ×3 (00:25→12:00)
[2017-03-23] MEDS: oxyCODONE/ACETAMINOPHEN 7.5 MG/325 MG TAB PO ×2 (00:26→06:21)
[2017-03-23] MEDS: CHLORHEXIDINE GLUCONATE 2 % 1 PACK (2 CLOTHS) TOP (04:00)
[2017-03-23] MEDS: ARTIFICIAL TEARS OPTH SOLN 15 ML BTL EACH EYE ×2 (06:00→14:00)
[2017-03-23] MEDS: CHLORHEXIDINE 0.12% (ORAL KIT) 15 ML CUP MT (08:00)
[2017-03-23] MEDS: LITHIUM CARBONATE 300 MG CAP PO (10:26)
[2017-03-23] MEDS: ZIPRASIDONE HCL 60 MG CAP PO (10:26)
[2017-03-23] MEDS: PANTOPRAZOLE SOD 40 MG DELAYED RELEASE TAB PO (10:26)
[2017-03-23] MEDS: SODIUM CHLORIDE 0.9% FLUSH 10 ML FLUSH IV FLUSH (10:38)
== END 2017-03-23 14:22 | DRG 853 ==
LOC: N07A 03-15 19:36 → NEPE 09:30 → NEDA 12:35 → N03A 13:07
PROC: 0DQ90ZZ Repair Duodenum, Open Approach (ICD-10-PCS; principal; 2017-03-06 14:41)
PROC: 0D160ZA Bypass Stomach to Jejunum, Open Approach (ICD-10-PCS; 2017-03-06 14:41)
PROC: 0D190ZA Bypass Duodenum to Jejunum, Open Approach (ICD-10-PCS; 2017-03-06 14:41)
PROC: 0DN80ZZ Release Small Intestine, Open Approach (ICD-10-PCS; 2017-03-06 14:41)
PROC: 0WJG4ZZ Inspection of Peritoneal Cavity, Percutaneous Endoscopic Approach (ICD-10-PCS; 2017-03-06 14:41)
PROC: 0WQF0ZZ Repair Abdominal Wall, Open Approach (ICD-10-PCS; 2017-03-06 14:41)
PROC: 0DH63UZ Insertion of Feeding Device into Stomach, Percutaneous Approach (ICD-10-PCS; 2017-03-06 14:41)
PROC: 0DHA3UZ Insertion of Feeding Device into Jejunum, Percutaneous Approach (ICD-10-PCS; 2017-03-06 14:41)
PROC: 5A1955Z Respiratory Ventilation, Greater than 96 Consecutive Hours (ICD-10-PCS; 2017-03-06 14:41)
PROC: 0BH17EZ Insertion of Endotracheal Airway into Trachea, Via Natural or Artificial Opening (ICD-10-PCS; 2017-03-06 14:41)
PROC: 02HV33Z Insertion of Infusion Device into Superior Vena Cava, Percutaneous Approach (ICD-10-PCS; 2017-03-06 14:41)
PROC: 0W9B30Z Drainage of Left Pleural Cavity with Drainage Device, Percutaneous Approach (ICD-10-PCS; 2017-03-06 14:41)
PROC: 30233N1 Transfusion of Nonautologous Red Blood Cells into Peripheral Vein, Percutaneous Approach (ICD-10-PCS; 2017-03-06 14:41)
PROC: 30233K1 Transfusion of Nonautologous Frozen Plasma into Peripheral Vein, Percutaneous Approach (ICD-10-PCS; 2017-03-06 14:41)
DX: B37.7 Candidal sepsis (principal); J96.01 Acute respiratory failure with hypoxia; R65.21 Severe sepsis with septic shock; K26.5 Chronic or unspecified duodenal ulcer with perforation; K65.1 Peritoneal abscess; J93.83 Other pneumothorax; E87.0 Hyperosmolality and hypernatremia; N17.9 Acute kidney failure, unspecified; R64 Cachexia; Z68.1 Body mass index [BMI] 19.9 or less, adult; K66.0 Peritoneal adhesions (postprocedural) (postinfection); F25.9 Schizoaffective disorder, unspecified; K21.9 Gastro-esophageal reflux disease without esophagitis; F17.210 Nicotine dependence, cigarettes, uncomplicated; R00.0 Tachycardia, unspecified; E03.9 Hypothyroidism, unspecified; D64.89 Other specified anemias; D72.823 Leukemoid reaction; F31.9 Bipolar disorder, unspecified; E87.6 Hypokalemia; E83.39 Other disorders of phosphorus metabolism; F43.10 Post-traumatic stress disorder, unspecified; R19.7 Diarrhea, unspecified; D47.3 Essential (hemorrhagic) thrombocythemia; E16.2 Hypoglycemia, unspecified; Z53.31 Laparoscopic surgical procedure converted to open procedure; Z90.49 Acquired absence of other specified parts of digestive tract; Z87.828 Personal history of other (healed) physical injury and trauma; Z86.11 Personal history of tuberculosis; Z86.14 Personal history of Methicillin resistant Staphylococcus aureus infection
CPT/HCPCS: 31500; 32551; 36430; 36556; 36600; 43753; 51702; 70450; 71010; 71045; 71046; 74176; 74177; 76937; 80048; 80053; 80178; 80202; 80307; 81001; 82140; 82550; 82552; 82565; 82805; 82948; 83605; 83735; 84100; 84132; 84155; 84439; 84443; 84484; 85007; 85025; 85027; 85610; 85730; 86850; 86900; 86901; 86920; 86927; 87040; 87077; 87086; 87106; 87149-59; 87186; 87205; 87493; 87641; 88307; 93005; 93306; 94002; 94003; 94150; 94640; 94664; 96365; 96367; 97110-GP; 97116-GP; 97163-GP; 97530-GP; 99291-25; 99292